=== PATIENT | female | born 1995 | race Caucasian/White ===

== ENCOUNTER 2020-09-06 20:00 | Emergency (ER) | payer OTHER ==
--- OUTSIDE RECORDS SUMMARY | 2020-09-06 20:03 | XMS REPORT | Continuity of Care Document ---
:1995 Author Organization [facility] t Address [address] [place] [address] Care Team Providers Name Role Phone Colten Ordaz Attending Clinician Unavailable Colten Ordaz Admitting Clinician Unavailable Problems This patient has no known problems. Allergies, Adverse Reactions, Alerts This patient has no known allergies or adverse reactions. Medications This patient has no known medications. Procedures This patient has no known procedures. Encounters Start End Encounter Admission Attending Care Care Encounter Source Date/Time Date/Time Type Type Clinicians Facility Department ID 2019-11-10 2019-11-10 Emergency 1 [facility] [id number] [address] 02:39:00 10:54:00 [facility] Results Test Description Test Time Test Comments Results Result Comments Source Urine Culture 2019-11-11 C Urine Added by No growth at 24 08:10:34 [id number] hours. No growth at 48 hours. Novel Coronavirus SARS-CoV-2, PCR 2019-11-10 07:26:49 Test Item Value Reference Range Interpretation Comme nts SARS-CoV-2 PCR (test code = NEGATIVE Negative Positive results are indicative of SARS-CoV-2 PCR) active infec tion with SARS-CoV-2; clinical correl ation with patient history and oth er diagnostic information is necessary to determine patie nt infection status.Presumpt belinda positive results -INTERPRET WITH CAUTION: Result may not reflect if patient is actually positi ve. Patient should be treated based o n clinical suspicions. Neg ative results do not preclude SARS-C oV-2 infection and should not be u sed as the sole basis for treatment o r other patient management deci sions. Negative results must be combined with clinical observ ations, patient history, and ep idemiological information.The Xpert Xpress SARS-CoV-2 test is only for use under the Food and Drug Administration s Emergency Use Authorization." Urinalysis [id number] 05:37:57 Test Item Value Reference Range Interpretation Comments UA WBC (test code = UA WBC) 6-10 0-5 A UA RBC (test code = UA RBC) 6-10 0-5 A UA Bacteria (test code = UA None Seen Bacteria) UA Squam Epithelial (test code = UA 0-5 Squam Epithelial) Comprehensive Metabolic [id number] 04:54:58 Test Item Value Reference Range Interpretation Comments Sodium Level (test code = Sodium 142.0 mmol/L 136.0-145.0 Level) Potassium Level (test code = 3.20 mmol/L 3.50-5.10 L Potassium Level) Chloride Level (test code = 104.0 mmol/L 98.0-107.0 Chloride Level) CO2 (test code = CO2) 30 mmol/L 20-31 Anion Gap (test code = Anion 8.5 mmol/L 5.0-15.0 Gap) BUN (test code = BUN) 11 mg/dL 9-23 Creatinine Level (test code = 0.81 mg/dL 0.55-1.02 Creatinine Level) BUN/Creat Ratio (test code = 13.6 ratio 10.0-20.0 BUN/Creat Ratio) Glucose Level (test code = 105 mg/dL 74-106 Glucose Level) Calcium Level (test code = 9.0 mg/dL 8.3-10.6 Calcium Level) Alk Phos (test code = Alk Phos) 66 U/L 46-116 Bilirubin Total (test code = 0.3 mg/dL 0.2-1.1 Bilirubin Total) Albumin Level (test code = 4.9 g/dL 3.2-4.8 H Albumin Level) Protein Total (test code = 7.5 g/dL 5.7-8.2 Protein Total) ALT (test code = ALT) 29 U/L 10-49 AST (test code = AST) 44 U/L <=34 H Globulin (test code = Globulin) 2.6 g/dL 2.3-3.5 A/G Ratio (test code = A/G 1.9 g/dL 0.8-2.0 Ratio) Hemolysis (test code = 0 g/dL 1-2 Hemolysis) Icterus (test code = Icterus) 0 g/dL 1-2 Lipemia (test code = Lipemia) 0 g/dL 1-2 Comprehensive Metabolic [id number] 04:54:58 Test Item Value Reference Range Interpretation Comments Sodium Level (test 142.0 mmol/L 136.0-145.0 code = Sodium Level) Potassium Level 3.20 mmol/L 3.50-5.10 L (test code = Potassium Level) Chloride Level (test 104.0 mmol/L 98.0-107.0 code = Chloride Level) CO2 (test code = 30 mmol/L 20-31 CO2) Anion Gap (test code 8.5 mmol/L 5.0-15.0 = Anion Gap) BUN (test code = 11 mg/dL 9-23 BUN) Creatinine Level 0.81 mg/dL 0.55-1.02 (test code = Creatinine Level) BUN/Creat Ratio 13.6 ratio 10.0-20.0 (test code = BUN/Creat Ratio) Glucose Level (test 105 mg/dL 74-106 code = Glucose Level) Calcium Level (test 9.0 mg/dL 8.3-10.6 code = Calcium Level) Alk Phos (test code 66 U/L 46-116 = Alk Phos) Bilirubin Total 0.3 mg/dL 0.2-1.1 (test code = Bilirubin Total) Albumin Level (test 4.9 g/dL 3.2-4.8 H code = Albumin Level) Protein Total (test 7.5 g/dL 5.7-8.2 code = Protein Total) ALT (test code = 29 U/L 10-49 ALT) AST (test code = 44 U/L <=34 H AST) Globulin (test code 2.6 g/dL 2.3-3.5 = Globulin) A/G Ratio (test code 1.9 g/dL 0.8-2.0 = A/G Ratio) eGFR AA (test code = >60 >=60 eGFR (e stimated eGFR AA) mL/min/1.73 m2 Glomerular Filtration Rate ) is an estimated va lue, calculated from the patient's serum creatinine usin g the MDRD equation. It is NOT the patient 's actual GFR. The eGFR provides a more clinically usef ul measure of kidn ey disease than se rum creatinine alone.This calculation mae es sex and race in to account, if the information is provided. If th e race is not provided, and t he patient is -Julia n, multiply by 1.2 12. If sex is not provided, and t he patient is fema le, multiply by 0.7 42. Results for pat ients <18 years of ag e have not been validated by th e MDRD study and should be interpreted wit h caution. eGFR R esult Interpretation: eGFR > or = 60 is in the Normal RangeeGF R < 60 may mean kid karolyn diseaseeGFR < 1 5 may mean kidney failure Rang es recommended by the National Kidney Foundation, http://nkdep.ni h.gov Hemolysis (test code 0 g/dL 1-2 = Hemolysis) Icterus (test code = 0 g/dL 1-2 Icterus) Lipemia (test code = 0 g/dL 1-2 Lipemia) Alcohol [id number] 04:54:58 Test Item Value Reference Range Interpretation Comments Ethanol Level 163.2 mg/dL N The pharmacolo gical (test code = response to blo od alcohol Ethanol Level) levels may va ry from individual to i ndividual. The fatal lena ntration has been report ed to be >400 mg/dl. Comprehensive Metabolic [id number] 04:54:58 Test Item Value Reference Range Interpretation Comments Sodium Level (test 142.0 mmol/L 136.0-145.0 code = Sodium Level) Potassium Level 3.20 mmol/L 3.50-5.10 L (test code = Potassium Level) Chloride Level (test 104.0 mmol/L 98.0-107.0 code = Chloride Level) CO2 (test code = 30 mmol/L 20-31 CO2) Anion Gap (test code 8.5 mmol/L 5.0-15.0 = Anion Gap) BUN (test code = 11 mg/dL 9-23 BUN) Creatinine Level 0.81 mg/dL 0.55-1.02 (test code = Creatinine Level) BUN/Creat Ratio 13.6 ratio 10.0-20.0 (test code = BUN/Creat Ratio) Glucose Level (test 105 mg/dL 74-106 code = Glucose Level) Calcium Level (test 9.0 mg/dL 8.3-10.6 code = Calcium Level) Alk Phos (test code 66 U/L 46-116 = Alk Phos) Bilirubin Total 0.3 mg/dL 0.2-1.1 (test code = Bilirubin Total) Albumin Level (test 4.9 g/dL 3.2-4.8 H code = Albumin Level) Protein Total (test 7.5 g/dL 5.7-8.2 code = Protein Total) ALT (test code = 29 U/L 10-49 ALT) AST (test code = 44 U/L <=34 H AST) Globulin (test code 2.6 g/dL 2.3-3.5 = Globulin) A/G Ratio (test code 1.9 g/dL 0.8-2.0 = A/G Ratio) eGFR AA (test code = >60 >=60 eGFR (e stimated eGFR AA) mL/min/1.73 m2 Glomerular Filtration Rate ) is an estimated va lue, calculated from the patient's serum creatinine usin g the MDRD equation. It is NOT the patient 's actual GFR. The eGFR provides a more clinically usef ul measure of kidn ey disease than se rum creatinine alone.This calculation mae es sex and race in to account, if the information is provided. If th e race is not provided, and t he patient is -Julia n, multiply by 1.2 12. If sex is not provided, and t he patient is fema le, multiply by 0.7 42. Results for pat ients <18 years of ag e have not been validated by th e MDRD study and should be interpreted wit h caution. eGFR R esult Interpretation: eGFR > or = 60 is in the Normal RangeeGF R < 60 may mean kid karolyn diseaseeGFR < 1 5 may mean kidney failure Rang es recommended by the National Kidney Foundation, http://nkdep.ni h.gov eGFR Non-AA (test >60.00 >=60.00 eGFR (ck mated code = eGFR Non-AA) mL/min/1.73 m2 Glomer ular Filtration Rate ) is an estimated va lue, calculated from the patient's serum creatinine usin g the MDRD equation. It is NOT the patient 's actual GFR. The eGFR provides a more clinically usef ul measure of kidn ey disease than se rum creatinine alone.This calculation mae es sex and race in to account, if the information is provided. If th e race is not provided, and t he patient is -Julia n, multiply by 1.2 12. If sex is not provided, and t he patient is fema le, multiply by 0.7 42. Results for pat ients <18 years of ag e have not been validated by th e MDRD study and should be interpreted wit h caution. eGFR R esult Interpretation: eGFR > or = 60 is in the Normal RangeeGF R < 60 may mean kid karolyn diseaseeGFR < 1 5 may mean kidney failure Rang es recommended by the National Kidney Foundation, http://nkdep.ni h.gov Hemolysis (test code 0 g/dL 1-2 = Hemolysis) Icterus (test code = 0 g/dL 1-2 Icterus) Lipemia (test code = 0 g/dL 1-2 Lipemia) Urinalysis with Culture, if [id number] 04:54:54 Test Item Value Reference Range Interpretation Comments UA Color (test code = UA Color) YELLO Yellow UA Appear (test code = UA Appear) CLEAR Clear UA pH (test code = UA pH) 7.0 UA Spec Grav (test code = UA Spec 1.010 1.001-1.035 Grav) UA Glucose (test code = UA Glucose) NEG Negative UA Bili (test code = UA Bili) NEG Negative UA Ketones (test code = UA Ketones) NEG Negative UA Blood (test code = UA Blood) MOD Negative A UA Protein (test code = UA Protein) NEG Negative UA Urobilinogen (test code = UA .2 mg/dL >0.2 Urobilinogen) UA Nitrite (test code = UA Nitrite) NEG Negative UA Leuk Est (test code = UA Leuk LRG Negative A Est) UA Micro Ind? (test code = UA Micro Indicated Not Indicated A Ind?) Urine [id number] [id number] 04:48:36 Test Item Value Reference Range Interpretation Comments Amphetamine Screen Ur Negative Negative The sp ecimen is (test code = presumptive pos itive Amphetamine Screen Ur) if th e analyte concentration i s equal to or greater t alberto 1000 ng/ml.If confirmation of positive result is desired, please order Amphetamine Confirmation, U rine within 7 days. Barbiturate Screen Ur Negative Negative The sp ecimen is (test code = presumptive pos itive Barbiturate Screen Ur) if th e analyte concentration i s equal to or greater t alberto 200 ng/ml.If confir mation of positive res ult is desired, please order Barbiturate Confirmation, U rine within 7 days. Benzodiazepines Ur Negative Negative The speci men is (test code = presumptive pos itive Benzodiazepines Ur) if the a nalyte concentration i s equal to or greater t alberto 200 ng/ml.If confir mation of positive res ult is desired, please order Benzodiazephine Confirmation, U rine within 7 days. Cocaine Screen Ur (test Negative Negative The specimen is code = Cocaine Screen presum ptive positive Ur) if the analyte concentration i s equal to or greater t alberto 300 ng/ml.If confir mation of positive res ult is desired, please order Cocaine Metabol ite Confirmation, U rine within 7 days. Opiate Screen Ur (test Negative Negative The s pecimen is code = Opiate Screen presump tive positive Ur) if the analyte concentration i s equal to or greater t alberto 2000 ng/ml.If confirmation of positive result is desired, please order Opiate Confirm ation, Urine within 7 days. U PCP Scrn (test code = Negative Negative The specimen is U PCP Scrn) presumptive pos itive if the analyte concentration i s equal to or greater t alberto 25 ng/ml.If confir mation of positive res ult is desired, please order Phencyclidine Confirmation, U rine within 7 days. Cannabinoid Screen Ur Negative Negative The sp ecimen is (test code = presumptive pos itive Cannabinoid Screen Ur) if th e analyte concentration i s equal to or greater t alberto 50 ng/ml.If confir mation of positive res ult is desired, please order Cannabinoid (TH C) Confirmation, U rine within 7 days. U Methadone Scr (test Negative Negative The sp ecimen is code = U Methadone Scr) pres umptive positive if the analyte concentration i s equal to or greater t alberto 300 ng/ml.If confir mation of positive res ult is desired, please order Methadone Confirmation, U rine within 7 days. U Propoxyphene (test Negative Negative The [facility] cimen is code = U Propoxyphene) presu mptive positive if the analyte concentration i s equal to or greater t alberto 300 ng/ml.If confir mation of positive res ult is desired, please order Propoxyphene Confirmation wi thin 7 days. Complete Blood Count with [id number] 04:41:34 Test Item Value Reference Range Interpretation Comments WBC (test code = WBC) 5.7 x10 4.4-10.5 RBC (test code = RBC) 4.87 x10 3.75-5.20 Hgb (test code = Hgb) 13.9 g/dL 12.2-14.8 Hct (test code = Hct) 43.2 % 36.5-44.4 MCV (test code = MCV) 88.70 fL 80.00-100.00 MCHC (test code = 32.20 g/dL 32.00-37.50 MCHC) RDW CV (test code = 13.3 % 11.5-14.5 RDW CV) MCH (test code = MCH) 28.5 pg 27.0-32.5 Platelets (test code = 351.0 x10 140.0-440.0 Platelets) MPV (test code = MPV) 10.1 fL N Slide Review (test Auto Auto Result cr eated by code = Slide Review) GL_SJM_ SLIDE_REV_AUTO nRBC (test code = 0 N nRBC) NRBC Abs (test code = 0.00 x10 N NRBC Abs) Automated [id number] 04:41:34 Test Item Value Reference Range Interpretation Comments Neutro Auto (test code = Neutro 63.6 % 36.0-70.0 Auto) Lymph Auto (test code = Lymph Auto) 25.0 % 12.0-44.0 Lanier Auto (test code = Lanier Auto) 9.6 % 0.0-11.0 Eos, Auto (test code = Eos, Auto) 0.7 % 0.0-7.0 Basophil Auto (test code = Basophil 0.9 % 0.0-2.0 Auto) Neutro Absolute (test code = Neutro 3.6 x10 1.6-7.4 Absolute) Lymph Absolute (test code = Lymph 1.43 x10 .50-4.60 Absolute) Lanier Absolute (test code = Lanier .55 x10 .00-1.20 Absolute) Eos Absolute (test code = Eos 0.04 x10 0.00-0.74 Absolute) Baso Absolute (test code = Baso 0.05 x10 0.00-0.21 Absolute) IG [id number] 04:41:34 Test Item Value Reference Range Interpretation Comments IG (test code = IG) 0.2 % 0.0-5.0 IG Abs (test code = IG Abs) 0 x10 N
[2020-09-06 21:28] LABS: Absolute Lymphocytes (CBC) 1.4 K/uL (0.7-4.9); Basophils % 0.8 % (0-1.3); Hematocrit 38.1 % (36.0-45.0); Lymphocytes % 25.9 % (15.3-44.8); MPV 9.2 fL (7.6-11.3); RBC Red Blood Cell Count 4.47 M/uL (3.86-4.86)
[2020-09-06 21:37] LABS: Urine Blood 2+ (Negative); Urine Glucose Negative (Negative); Urine Protein Negative (Negative)
[2020-09-06 21:45] LABS: ALT/SGPT 51 U/L (12-78); AST/SGOT 65 U/L (15-37); Albumin 3.7 g/dL (3.4-5.0); Alkaline Phosphatase 72 U/L (45-117); BUN Blood Urea Nitrogen 13 mg/dL (7-18); Bicarbonate 31 mmol/L (21-32); Bilirubin Direct < 0.1 mg/dL (0-0.2); Bilirubin Total 0.2 mg/dL (0.2-1.0); Glucose Level 81 mg/dL (74-106); Lipase 288 U/L (73-393); Potassium 3.7 mmol/L (3.5-5.1); Protein, Total 7.1 g/dL (6.4-8.2); Sodium Level 140 mmol/L (136-145)
[2020-09-06] MEDS ORDERED: MORPHINE 2 MG/ML SYR ONE (21:58)
[2020-09-06] MEDS ORDERED: ONDANSETRON 4 MG/2 ML VIAL ONE (21:59)
--- NOTE | 2020-09-06 23:23 | ER ---
Nurse's Notes [facility] Name: Karol Dowell Age: 25 yrs Sex: Female : 1995 Arrival Date: 09/06/2020 Time: 20:03 Bed 19 Private MD: Diagnosis: Abdominal pain Presentation: 09/06 20:35 Chief complaint: Patient states: Abdominal cramping x 3 weeks. Getting worse. Pain ca1 starts at the epigastric region, goes down to the lower abd'l area, pelvis and lower back. Pain is aggravated by eating. reports nausea. Coronavirus screen: Client denies travel out of the [place] in the last 14 days. nausea, Client presents with at least one sign or symptom that may indicate coronavirus-19. Standard/surgical mask placed on the client. Provider contacted for isolation considerations. Ebola Screen: Patient negative for fever greater than or equal to 101.5 degrees Fahrenheit, and additional compatible Ebola Virus Disease symptoms Patient denies exposure to infectious person. Patient denies travel to an Ebola-affected area in the 21 days before illness onset. No symptoms or risks identified at this time. Initial Sepsis Screen: Does the patient meet any 2 criteria? No. Patient's initial sepsis screen is negative. Does the patient have a suspected source of infection? No. Patient's initial sepsis screen is negative. Risk Assessment: Do you want to hurt yourself or someone else? Patient reports no desire to harm self or others. Onset of symptoms was September 06, 2020. 20:35 Method Of Arrival: Ambulatory ca1 20:35 Acuity: NIR 3 ca1 Triage Assessment: 20:42 General: Appears in no apparent distress. comfortable, Behavior is calm, cooperative, ca1 appropriate for age. Pain: Complains of pain in abdomen Pain radiates to back Pain currently is 5 out of 10 on a pain scale. Quality of pain is described as crampy, Pain began 3 weeks [employer] Is continuous, Aggravated by eating. EENT: No signs and/or symptoms were reported regarding the EENT system. Neuro: Level of Consciousness is awake, alert, obeys commands, Oriented to person, place, time, situation. Cardiovascular: Heart tones S1 S2 present Capillary refill < 3 seconds Patient's skin is warm and dry. Respiratory: Airway is patent Respiratory effort is even, unlabored, Respiratory pattern is regular, symmetrical, Breath sounds are clear bilaterally. GI: Abdomen is flat, non-distended, Bowel sounds present X 4 quads. Abd is soft X 4 quads Abdomen is tender to palpation X 4 quads. Reports diarrhea. : No signs and/or symptoms were reported regarding the genitourinary system. Derm: Skin is intact, is healthy with good turgor, Skin is pink, warm \T\ dry. Musculoskeletal: Circulation, motion, and sensation intact. Capillary refill < 3 seconds. DIRECTOR OF MATERIALS: 20:42 LMP N/A - Irregular menses ca1 Historical: - Allergies: 20:42 lamotrigine; ca1 - Home Meds: 20:42 Paxil Oral [Active]; Trazodone Oral [Active]; ca1 - PMHx: 20:42 Bipolar disorder; Anxiety; ca1 - PSHx: 20:42 None; ca1 - Immunization history:: Client reports having NOT received the Covid vaccine. Flu vaccine is up to date. - Social history:: Smoking status: Patient denies any tobacco usage or history of. Screenin:44 Abuse screen: Denies threats or abuse. Denies injuries from another. Nutritional ca1 screening: No deficits noted. Tuberculosis screening: No symptoms or risk factors identified. Fall Risk IV access (20 points). Assessment: 20:44 Reassessment: see triage notes. ca1 21:58 Reassessment: Patient appears in no apparent distress at this time. Patient and/or ca1 family updated on plan of care and expected duration. Pain level reassessed. Patient is alert, oriented x 3, equal unlabored respirations, skin warm/dry/pink. 22:56 Reassessment: Patient appears in no apparent distress at this time. Patient and/or ca1 family updated on plan of care and expected duration. Pain level reassessed. Patient is alert, oriented x 3, equal unlabored respirations, skin warm/dry/pink. 23:33 Reassessment: Patient appears in no apparent distress at this time. Patient is alert, ca1 oriented x 3, equal unlabored respirations, skin warm/dry/pink. Patient states feeling better. Vital Signs: 20:35 BP 107 / 70; Pulse 64; Resp 18 S; Temp 98.7(O); Pulse Ox 100% on R/A; Weight 56.7 kg ca1 (R); Height 5 ft. 3 in. (160.02 cm) (R); Pain 5/10; 21:58 BP 99 / 56; Pulse 58; Resp 18 S; Pulse Ox 96% on R/A; ca1 22:56 BP 100 / 71; Pulse 57; Resp 18 S; Pulse Ox 100% on R/A; ca1 20:35 Body Mass Index 22.14 (56.70 kg, 160.02 cm) ca1 ED Course: 20:03 Patient arrived in ED. ds1 20:40 Jaquelin Bowles, RN is Primary Nurse. ca1 20:42 Triage completed. ca1 20:42 Arm band placed on right wrist. ca1 20:44 Patient has correct armband on for positive identification. Bed in low position. Call ca1 light in reach. Side rails up X 1. Pulse ox on. NIBP on. Warm blanket given. 21:08 Yosef Winters MD is Attending Physician. [email or web address] 21:19 Initial lab(s) drawn, by nj, sent to lab. Inserted saline lock: 20 gauge in right ca1 antecubital area, using aseptic technique. Blood collected. 22:42 CT Abd/Pelvis - IV Contrast Only In Process Unspecified. EDMS 23:33 No provider procedures requiring assistance completed. IV discontinued, intact, ca1 bleeding controlled, No redness/swelling at site. Pressure dressing applied. Administered Medications: 21:30 Drug: Zofran (Ondansetron) 4 mg Route: IVP; Site: right antecubital; ca1 23:33 Follow up: Response: No adverse reaction; Nausea is decreased ca1 21:35 Drug: morphine 2 mg {Note: rass 0.} Route: IVP; Site: right antecubital; ca1 23:32 Follow up: Response: No adverse reaction; Pain is decreased; RASS: Alert and Calm (0) ca1 Outcome: 23:22 Discharge ordered by . [email or web address] 23:33 Discharged to home ambulatory, with significant other. ca1 23:33 Condition: stable 23:33 Discharge instructions given to patient, Instructed on discharge instructions, follow up and referral plans. Demonstrated understanding of instructions, follow-up care. 23:33 Patient left the ED. ca1 Signatures: Dispatcher [employer] EDMS Yosef Winters MD MD pkl Hailey Howard ds1 Jaquelin Bowles RN RN ca1
--- NOTE | 2020-09-06 23:23 | EDPHYS ---
Physician Documentation [facility] Name: Karol Dowell Age: 25 yrs Sex: Female : 1995 Arrival Date: 09/06/2020 Time: 20:03 Bed 19 Private MD: ED Physician Yosef Winters HPI: 09/06 21:14 This 25 yrs old Female presents to ER via Ambulatory with complaints of pkl Abdominal Pain, Abdominal Cramping. 21:14 The patient presents with abdominal pain that is diffuse. Onset: The symptoms/episode pkl began/occurred 3 week(s) ago. The symptoms do not radiate. Associated signs and symptoms: none. The patient has not experienced similar symptoms in the past. 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 Flu vaccine is up to date. - Social history:: Smoking status: Patient denies any tobacco usage or history of. ROS: 21:14 Eyes: Negative for injury, pain, redness, and discharge, ENT: Negative for injury, pkl pain, and discharge, Neck: Negative for injury, pain, and swelling, Cardiovascular: Negative for chest pain, palpitations, and edema, Respiratory: Negative for shortness of breath, cough, wheezing, and pleuritic chest pain. 21:14 Abdomen/GI: Positive for abdominal pain, nausea, of the epigastric area, right lower quadrant and left lower quadrant. 21:14 Back: Negative for acute changes. 21:14 : Negative for urinary symptoms. 21:14 MS/extremity: Negative for acute changes. 21:14 Skin: Negative for rash. 21:14 Neuro: Negative for altered mental status, loss of consciousness. Exam: 21:14 Head/Face: Normocephalic, atraumatic. Eyes: Pupils equal round and reactive to light, pkl extra-ocular motions intact. Lids and lashes normal. Conjunctiva and sclera are non-icteric and not injected. Cornea within normal limits. Periorbital areas with no swelling, redness, or edema. ENT: Nares patent. No nasal discharge, no septal abnormalities noted. Tympanic membranes are normal and external auditory canals are clear. Oropharynx with no redness, swelling, or masses, exudates, or evidence of obstruction, uvula midline. Mucous membranes moist. Neck: Trachea midline, no thyromegaly or masses palpated, and no cervical lymphadenopathy. Supple, full range of motion without nuchal rigidity, or vertebral point tenderness. No Meningismus. Chest/axilla: Normal chest wall appearance and motion. Nontender with no deformity. No lesions are appreciated. Cardiovascular: Regular rate and rhythm with a normal S1 and S2. No gallops, murmurs, or rubs. Normal PMI, no JVD. No pulse deficits. Respiratory: Lungs have equal breath sounds bilaterally, clear to auscultation and percussion. No rales, rhonchi or wheezes noted. No increased work of breathing, no retractions or nasal flaring. 21:14 Abdomen/GI: Bowel sounds: normal, Palpation: soft, mild abdominal tenderness, in the epigastric area, right lower quadrant and left lower quadrant. 21:14 Back: Exam negative for acute changes. 21:14 : Exam negative for acute changes. 21:14 Musculoskeletal/extremity: Exam is negative for acute changes. 21:14 Skin: Exam negative for rash. 21:14 Neuro: Orientation: is normal, Mentation: is normal, Cranial nerves: grossly normal, Motor: is normal. Vital Signs: 20:35 BP 107 / 70; Pulse 64; Resp 18 S; Temp 98.7(O); Pulse Ox 100% on R/A; Weight 56.7 kg ca1 (R); Height 5 ft. 3 in. (160.02 cm) (R); Pain 5/10; 21:58 BP 99 / 56; Pulse 58; Resp 18 S; Pulse Ox 96% on R/A; ca1 22:56 BP 100 / 71; Pulse 57; Resp 18 S; Pulse Ox 100% on R/A; ca1 20:35 Body Mass Index 22.14 (56.70 kg, 160.02 cm) ca1 MDM: 21:08 Patient medically screened. pkl 23:18 Data reviewed: vital signs, nurses notes, lab test result(s), radiologic studies, CT pkl scan. ED course: Discussed lab and CT Scan results with patient. Advised to follow up with PCP or Sole Splitter in 2 to 3 days for further evaluations. Patient understood instructions. 09/06 21:07 Order name: Basic Metabolic Panel em 09/06 21:07 Order name: CBC with Diff; Complete Time: 21:50 em 09/06 21:07 Order name: Hepatic Function; Complete Time: 21:50 em 09/06 21:07 Order name: Lipase; Complete Time: 21:50 em 09/06 21:08 Order name: Basic Metabolic Panel; Complete Time: 21:50 EDMS 09/06 21:36 Order name: Urine --Ancillary (enter results); Complete Time: 21:50 tt3 09/06 21:07 Order name: IV Saline Lock; Complete Time: 21:24 em 09/06 21:07 Order name: Labs collected and sent; Complete Time: 21:24 em 09/06 21:07 Order name: Urine Dipstick-Ancillary (obtain specimen); Complete Time: 21:34 em 09/06 21:18 Order name: CT Abd/Pelvis - IV Contrast Only pkl 09/06 21:36 Order name: Urine Dipstick-Ancillary; Complete Time: 21:50 EDMS Administered Medications: 21:30 Drug: Zofran (Ondansetron) 4 mg Route: IVP; Site: right antecubital; ca1 23:33 Follow up: Response: No adverse reaction; Nausea is decreased ca1 21:35 Drug: morphine 2 mg {Note: rass 0.} Route: IVP; Site: right antecubital; ca1 23:32 Follow up: Response: No adverse reaction; Pain is decreased; RASS: Alert and Calm (0) ca1 Disposition Summary: 09/06/20 23:22 Discharge Ordered Location: Home pkl Problem: new pkl Symptoms: have improved pkl Condition: Stable pkl Diagnosis - Abdominal pain pkl Followup: pkl - With: Private Physician - When: 2 - 3 days - Reason: Re-evaluation by your physician Discharge Instructions: - Discharge Summary Sheet ca1 Forms: - Medication Reconciliation Form pkl - Thank You Letter pkl - Antibiotic Education pkl - Prescription Opioid Use pkl - Work release form ca1 Signatures: Dispatcher [employer] EDYosef Terry MD MD pkl Noe, [place], RN RN em Acob, Jaquelin, RN RN ca1
[2020-09-07 00:31] VITALS: TEMP 98.7
[2020-09-07 00:34] VITALS: BP 100/71; O2SAT 100
--- NOTE | 2020-09-07 11:16 | RAD REPORT ---
EXAM DESCRIPTION: CT - Abdomen Pelvis W Contrast - 09/07/2020 4:52 am CLINICAL HISTORY: The patient is 28 years old and is Female; pain left upper extremity TECHNIQUE: Axial computed tomography images of the cervical spine without intravenous contrast. Sa gittal and coronal reformatted images were created and reviewed. This CT exam was performed using o ne or more of the following dose reduction techniques: automated exposure control, adjustment of th e mA and/or kV according to patient size, and/or use of iterative reconstruction technique. COMPARISON: No relevant prior studies available. FINDINGS: Vertebrae: Unremarkable. No acute fracture. Discs/spinal canal/neural foramina: No acute findings. No spinal canal stenosis. Soft tissues: Unremarkable. Sinuses: Right maxillary sinus retention cyst or polyp. IMPRESSION: No acute fracture or subluxation. Electronically signed by: Milo Santoyo MD 09/07/2020 2:32 AM CDT Due to temporary technical issues with the PACS/Fluency reporting system, reports are being signed by the in house radiologist without review as a courtesy to ensure prompt reporting. The interpreting r adiologist is fully responsible for the content of the report.
== END 2020-09-06 23:33 | disposition home or self-care (01) ==
LOC: ER 20:00
DX: R10.9 Unspecified abdominal pain (principal); F31.9 Bipolar disorder, unspecified; Z88.8 Allergy status to other drugs, medicaments and biological substances
CPT/HCPCS: 85025; 80048; 36415; 81025; 80076; 81003; 83690; 74177; 96375; 96374; 99284; Q9967; J2270; J2405

== ENCOUNTER 2021-12-09 20:59 | Emergency (ER) | payer BC, OTHER ==
--- OUTSIDE RECORDS SUMMARY | 2021-12-09 21:36 | XMS REPORT | Continuity of Care Document ---
:1995 Author Organization [facility] t Address [address] [place] [address] Care Team Providers Name Role Phone PCP, PATIENT DOES NOT HAVE A Primary Care Physician Unavaila CARLOS Silva Attending Clinician Unavailable Chivo Merino MD Attending Clinician Carlos Granados MD Attending Clinician Ann Ordaz Attending Clinician Unavailable CHIVO MERINO Admitting Clinician Unavailable Ann Ordaz Admitting Clinician Unavailable Payers Payer Name Policy Type Policy Number Effective Date Expiration Date S aidee [facility] [id number] 2021 00:00:00 Problems This patient has no known problems. Allergies, Adverse Reactions, Alerts Allergy Allergy Status Severity Reaction(s) Onset Inactive Treating Comm ents Source Name Type Date Date Clinician LAMOTRIG DRUG Active Anaphylaxis 2021-0 Uni vers INE 6-26 ity of (BULK) 00:00: [place] 00 Medical Branch Lamotrig Propensi Active Anaphylaxis 2021-0 U nivers ine ty to 6-26 ity of (Bulk) adverse 00:00: [place] reaction 00 Medical s Branch No Known Drug Active [facility] Social History Social Habit Start Date Stop Date Quantity Comments Source Exposure to 2021-08-05 2021-08-15 Not sure [facility] SARS-CoV-2 (event) 00:00:00 01:48:00 Medica l Branch Sex Assigned At [birth year] [facility] 00:00:00 00:00:00 Medical Branch Smoking Status Start Date Stop Date Source Unknown if ever smoked [facility] Medications Ordered Filled Start Stop Current Ordering Indication Dosage Frequency Signature Comments Components Source Medication Medication Date Date Medication? Clinician (SIG) Name Name iopamidol 2021- No [id number] 55mL 55 mL, U nivers (ISOVUE 08-15 Intravenou ity o f 370-500 mL) 11:08: 11:30 s, ONCE, 1 [place] injection 00 :00 dose, On Medica l 55 mL [facility] 08/15/21 at 0630, Routine ketorolac 2021- No 15mg 15 mg, Unive rs (TORADOL) 08-15 Slow IV ity of injection 10:30: 09:41 Push, [place] 15 mg 00 :00 ONCE, 1 Medical dose, On [facility] 08/15/21 at 0530, MARY famotidine 2021- No 20mg 20 mg, Univ ers (PEPCID 08-15 Slow IV ity of (PF)) 10:30: 09:41 Push, [place] injection 00 :00 ONCE, 1 Medical 20 mg dose, On [facility] 08/15/21 at 0530, MARY ondansetron 2021- No 4mg 4 mg, Slow Univers (ZOFRAN 08-15 IV Push, ity of (PF)) 10:30: 09:41 ONCE, 1 [place] injection 4 00 :00 dose, On Medi aury mg [facility] 08/15/21 at 0530, MARY NaCl 0.9% 2021- No 1000mL at 999 Uni vers (NS) bolus 08-15 mL/hr, ity of infusion 10:30: 12:03 1,000 mL, Phill as 1,000 mL 00 :00 IV Medical Infusion, Branch ONCE, 1 dose, On [place] 08/15/21 at 0530, MARY sodium Yes 5mL 5 mL, Univers chloride 08-15 Intravenou ity o f (NS) 07:04: s, PRN, [place] injection 5 16 Starting Medi aury mL on [facility] 08/15/21 at 0204, Until Discontinu ed, Routine, IV line flushing acetaminoph Yes 4647 2{tbl} Take 2 Un yennifer en-codeine 6-26 tablets by ity of 300-30 mg 00:00: mouth [place] tablet 00 every 6 Medical (six) Branch hours as needed for Pain (scale 7-10). Indication s: acute pain ondansetron Yes [id number] 4mg Take 1 Univers 4 mg 6-26 tablet by ity of disintegrat 00:00: mouth [place] ing tablet 00 every 8 Medica l (eight) Branch hours as needed for Nausea and Vomiting (N/V). Vital Signs Vital Name Observation Time Observation Value Comments Source Systolic blood 2021-08-15 12:00:00 99 mm[Hg] [facility] Diastolic blood 2021-08-15 12:00:00 65 mm[Hg] [facility] Respiratory rate 2021-08-15 12:00:00 16 /min [facility] Heart rate 2021-08-15 09:06:00 63 /min [facility] Body temperature 2021-08-15 09:06:00 36.61 Katie [facility] Oxygen saturation in 2021-08-15 09:06:00 99 /min [facility] Arterial blood by [facility] Pulse oximetry [place] Body weight 2021-08-15 06:46:00 52.617 kg [facility] Procedures Procedure Date / Time Performing Clinician Source Performed CT ABDOMEN PELVIS W 2021-08-15 11:15:00 Chivo Merino [facility] CONTRAST [facility] Er POCT TEST 2021-08-15 09:38:00 Chivo Merino [facility] URINALYSIS 2021-08-15 08:15:00 Chivo Merino [place] [facility] URINE DRUG (IMMUNOASSAY) 2021-08-15 08:15:00 Chivo Merino [facility] SCREEN W/O REFLEX LIPASE 2021-08-15 07:44:00 Chivo Merino [place] f [facility] TEST, SERUM 2021-08-15 07:44:00 Chivo Merino [facility] COMP. METABOLIC PANEL 2021-08-15 07:44:00 Chivo Merino [facility] ([id number]) Medical Branch ETHANOL 2021-08-15 07:44:00 Chivo Merino [facility] CBC WITH DIFF 2021-08-15 07:44:00 Chivo Merino [facility] CONSENT/REFUSAL FOR 2021-08-15 06:46:26 Doctor Unassigned, No Un [facility] DIAGNOSIS AND TREATMENT Name Medical Branch Encounters Start End Encounter Admission Attending Care Care Encounter Source Date/Time Date/Time Type Type Clinicians Facility Department ID 2021-08-15 2021-08-15 Emergency X GALINDO, [facility] ERT [id number] Univers 01:55:00 07:38:00 CARLOS sanderson [facility] 2021-08-15 2021-08-15 Emergency Chivo Merino TRAU[place] [id number] Univers 01:55:00 07:38:00 Carlos Granados [facility] [id number] ity of [id number] [facility] [id number] [address] 2019-11-10 2019-11-10 [id number] [address] 02:39:00 10:54:00 [facility] Results Test Description Test Time Test Comments Results Result Comments Source TEST, SERUM 2021-08-15 09:51:51 Test Item Value Reference Range Interpretation Comme nts PREG SERUM (test code = 9834131792) Negative EMILY (test code = EMILY) Less than 10 IU/L. ?If low titer or ectopic is suspected, resubmit specimen in 48-72 hours. [facility] [id number] 09:38:00 Test Item Value Reference Range Interpretation Comments POCT PREG (test code = 1605) negative On board controls acceptable with Present C Line (test code = 3574) POCT PREG LOT # (test code = 3575) [id number] POCT PREG TEST DATE (test 03-22-2022 code = 3576) Lab Interpretation (test code = Normal 41131-3) [facility] 09:36:22 Test Item Value Reference Range Interpretation Comments ALCOHOL (test code = <10 mg/dL 2150326235) EMILY (test code = Toxic Greater than or EMILY) equal to 80 mg/dL. NOTE: Whole blood values are approximately 10% to 15% lower than serum and plasma. [facility] with [id number] 08:27:31 Test Item Value Reference Range Interpretation Comments WBC (test code = See_Comment L [Automated 6690-2) message] The sy stem which generated this result transmitted reference range : 4.30 - 11.10 10*3/?L. The reference range was not used to interpret this result as normal/abnormal . RBC (test code = See_Comment [Automated 789-8) message] The sy stem which generated this result transmitted reference range : 3.93 - 5.25 10*6/?L. The reference range was not used to interpret this result as normal/abnormal . HGB (test code = 12.2 g/dL 11.6-15.0 718-7) HCT (test code = 35.9 % 35.7-45.2 4544-3) MCV (test code = 87.3 fL 80.6-95.5 787-2) MCH (test code = 29.7 pg 25.9-32.8 785-6) MCHC (test code = 34.0 g/dL 31.6-35.1 786-4) RDW-SD (test code = 38.8 fL 39.0-49.9 L 31108-9) RDW-CV (test code = 12.1 % 12.0-15.5 788-0) PLT (test code = See_Comment [Automated 777-3) message] The sy stem which generated this result transmitted reference range : 166 - 358 10*3/ ?L. The reference r harpal was not used to interpret this result as normal/abnormal . MPV (test code = 10.6 fL 9.5-12.9 71402-2) NRBC/100 WBC (test See_Comment [Automat ed code = 4748687446) message] The system which generated this result transmitted reference range : 0.0 - 10.0 /100 WBCs. The refer ence range was not u sed to interpret th is result as normal/abnormal . NRBC x10^3 (test code <0.01 See_Comment [Auto mated = 5058909447) message] The s ystem which generated this result transmitted reference range : 10*3/?L. The reference range was not used to interpret this result as normal/abnormal . GRAN MAT (NEUT) % 46.9 % (test code = 770-8) IMM GRAN % (test code 0.20 % = 3590960710) LYMPH % (test code = 35.9 % 736-9) MONO % (test code = 14.7 % 5905-5) EOS % (test code = 1.4 % 713-8) BASO % (test code = 0.9 % 706-2) GRAN MAT x10^3(ANC) 1.98 10*3/uL 1.88-7.09 (test code = 8154073369) IMM GRAN x10^3 (test <0.03 0.00-0.06 code = 0685502731) LYMPH x10^3 (test code 1.52 10*3/uL 1.32-3.29 = 731-0) MONO x10^3 (test code 0.62 10*3/uL 0.33-0.92 = 742-7) EOS x10^3 (test code = 0.06 10*3/uL 0.03-0.39 711-2) BASO x10^3 (test code 0.04 10*3/uL 0.01-0.07 = 704-7) REACT LYMPHS (test Rare code = 2393738553) Lab Interpretation Abnormal (test code = 38550-3) [facility] [id number] 08:07:03 Test Item Value Reference Range Interpretation Comments NA (test code = 138 mmol/L 135-145 9769608332) K (test code = 4.2 mmol/L 3.5-5.0 1250001949) CL (test code = 106 mmol/L 98-108 1332439933) CO2 TOTAL (test code = 29 mmol/L 23-31 9072310355) AGAP (test code = 2-16 1597965863) BUN (test code = 11 mg/dL 7-23 8465275479) GLUCOSE (test code = 89 mg/dL 70-110 6179051541) CREATININE (test code = 0.58 mg/dL 0.50-1.04 3162426946) TOTAL BILI (test code = 0.3 mg/dL 0.1-1.8 9141377806) CALCIUM (test code = 9.1 mg/dL 8.6-10.6 7700620339) T PROTEIN (test code = 7.0 g/dL 6.3-8.2 1874972817) ALBUMIN (test code = 4.3 g/dL 3.5-5.0 5630434053) ALK PHOS (test code = 63 U/L 34-122 9499497891) ALTv (test code = 62 U/L 5-35 H 1742-6) AST(SGOT) (test code = 46 U/L 13-40 H 0478931211) eGFR (test code = mL/min/1.73m2 5285758973) EMILY (test code = EMILY) Association of Glomerular Filtration Rate (GFR) and Staging of Kidney Disease* + --+ --+ ------+| GFR (mL/min/1.73 m2) ?| With Kidney Damage ?| ?Without Kidney Damage+ --------+ --------+ +| ?>90 ?| ?Stage one ?| ? Normal ?+ ---+ ---+ -------+| ?60-89 ?| ?Stage two ?| ? Decreased GFR ? + --+ --+ ------+| ?30-59 ?| ?Stage three ?| ? Stage three ? + --+ --+ ------+| ?15-29 ?| ?Stage four ? | ? Stage four ?+ ---+ ---+ -------+| ?<15 (or dialysis) ? ?| ?Stage five ? | ? Stage five ?+ ---+ ---+ -------+ *Each stage assumes the associated GFR level has been in effect for at least three months. ?Stages 1 to 5, with or without kidney disease, indicate chronic kidney disease. Notes: Determination of stages one and two (with eGFR >59mL/min/1.73 m2) requires estimation of kidney damage for at least three months as defined by structural or functional abnormalities of the kidney, manifested by either:Pathological abnormalities or Markers of kidney damage (including abnormalities in the composition of the blood or urine or abnormalities in imaging tests). Lab Interpretation Abnormal (test code = 85710-5) [facility] Hospital[facility], [id number] 08:07:03 Test Item Value Reference Range Interpretation Comments LIPASE (test code = 0574205423) 319 U/L 0-220 H Lab Interpretation (test code = Abnormal 94840-7) [facility] Hospital[facility] [id number] 08:10:34 C Urine Added by [id number] growth at 24 hours. No growth at 48 hours.Novel Coronavirus SARS-CoV-2, [id number] 07:26:49 Test Item Value Reference Range Interpretation Comments SARS-CoV-2 PCR NEGATIVE Negative Positive resu lts are (test code = indicative of a ctive SARS-CoV-2 PCR) infection wi th SARS-CoV-2; clinical correl ation with patient history and other diagnostic info rmation is necessary to de termine patient infecti on status.Presumpt belinda positive result s -INTERPRET WITH CAUTION: Result may not reflect if mir ent is actually positi ve. Patient should be treat ed based on clinical suspic ions. Negative result s do not preclude SARS-C oV-2 infection and s hould not be used as the sole basis for treatment o r other patient managem ent decisions. Nega tive results must be combined with clinical observations, p atient history, and epidemiological information.The Xpert Xpress SARS-CoV -2 test is only for use un sherry the Food and Drug Administration s Emergency Use Authorization." Urinalysis [id number] 05:37:57 Test Item Value Reference Range Interpretation Comments UA WBC (test code = UA WBC) 6-10 0-5 A UA RBC (test code = UA RBC) 6-10 0-5 A UA Bacteria (test code = UA None Seen Bacteria) UA Squam Epithelial (test code = UA 0-5 Squam Epithelial) Comprehensive Metabolic [id number] 04:54:58 Test Item Value Reference Range Interpretation [...] = Lipemia) 0 g/dL 1-2 Comprehensive Metabolic [id number] 04:54:58 Test Item Value Reference Range Interpretation [...] code = 0 g/dL 1-2 Lipemia) Alcohol [id number] 04:54:58 Test Item Value Reference Range Interpretation Comments Ethanol Level 163.2 mg/dL N The pharmacolo gical (test code = response to blo od alcohol Ethanol Level) levels may va ry from individual to i ndividual. The fatal lena ntration has been report ed to be >400 mg/dl. Comprehensive Metabolic [id number] 04:54:58 Test Item Value Reference Range Interpretation [...] ag e have not been validated by [facility] MDRD study and should be interpreted wit [...] ag e have not been validated by [facility] MDRD study and should be interpreted wit [...] g/dL 1-2 Lipemia) Urinalysis with Culture, if [id number] 04:54:54 Test Item Value Reference Range Interpretation [...] Indicated Not Indicated A Ind?) Urine DOA [id number] 04:48:36 Test Item Value Reference Range Interpretation [...] positive result is desired, please order Opiate Confirma tion, Urine within 7 days. U PCP Scrn [...] days. U Propoxyphene (test Negative Negative The spe cimen is code = U Propoxyphene) presu mptive positive if the analyte concentration i s equal to or greater t alberto 300 ng/ml.If confir mation of positive res ult is desired, please order Propoxyphene Confirmation wi thin 7 days. Complete Blood Count with [id number] 04:41:34 Test Item Value Reference Range Interpretation [...] = 0.00 x10 N NRBC Abs) Automated [id number] 04:41:34 Test Item Value Reference Range Interpretation Comments Neutro Auto (test code = Neutro 63.6 % 36.0-70.0 Auto) Lymph Auto (test code = Lymph Auto) 25.0 % 12.0-44.0 [place] Auto (test code = [place] Auto) 9.6 % 0.0-11.0 Eos, Auto (test code = Eos, Auto) 0.7 % 0.0-7.0 Basophil Auto (test code = Basophil 0.9 % 0.0-2.0 Auto) Neutro Absolute (test code = Neutro 3.6 x10 1.6-7.4 Absolute) Lymph Absolute (test code = Lymph 1.43 x10 .50-4.60 Absolute) [place] Absolute (test code = [place] .55 x10 .00-1.20 Absolute) Eos Absolute (test code = Eos 0.04 x10 0.00-0.74 Absolute) Baso Absolute (test code = Baso 0.05 x10 0.00-0.21 Absolute) IG [id number] 04:41:34 Test Item Value Reference Range Interpretation Comments IG (test code = IG) 0.2 % 0.0-5.0 IG Abs (test code = IG Abs) 0 x10 N
[2021-12-09] MEDS ORDERED: ONDANSETRON 4 MG/2 ML VIAL ONE (22:00)
[2021-12-09] MEDS ORDERED: MORPHINE 4 MG/ML SYR ONE (22:00)
[2021-12-09] MEDS ORDERED: NA CHLORIDE 0.9% 1,000 ML ONE (22:01)
[2021-12-09] MEDS ORDERED: FAMOTIDINE 20 MG/2 ML VIAL IV ONE (22:02)
[2021-12-09 23:04] LABS: Albumin 3.9 g/dL (3.4-5.0); Bilirubin Total 0.5 mg/dL (0.2-1.0); Potassium 3.2 mmol/L (3.5-5.1); Protein, Total 7.1 g/dL (6.4-8.2)
[2021-12-09 23:09] LABS: Absolute Lymphocytes (CBC) 1.1 K/uL (0.7-4.9); Lymphocytes % 21.3 % (15.3-44.8); MCV 87.6 fL (80-100); MPV 9.6 fL (7.6-11.3); RBC Red Blood Cell Count 4.33 M/uL (3.86-4.86)
[2021-12-09 23:31] LABS: Urine Blood Negative (Negative); Urine Glucose Negative (Negative); Urine Protein Negative (Negative); Urine pH >=9.0 (5.0-7.0)
[2021-12-09 23:55] LABS: Urine Bacteria <20 /HPF (<20); Urine Mucus Slight /HPF (None Seen); Urine RBC <5 /HPF (None Seen)
--- NOTE | 2021-12-10 02:10 | ER ---
Nurse's Notes [facility] Name: Karol Dowell Age: 26 yrs Sex: Female : 1995 Arrival Date: 12/09/2021 Time: 21:31 Bed 8 Private MD: Diagnosis: Acute on chronic abdominal pain;Nausea and vomiting Presentation: 12/09 21:47 Chief complaint: EMS states: patient report severe abdominal pain that has been going ha1 on for one year. blood pressure was low but got better with a bolus of 1000 ML NS. Coronavirus screen: Vaccine status: Patient reports being unvaccinated. Ebola Screen: No symptoms or risks identified at this time. 21:47 Method Of Arrival: EMS: [facility] ha1 21:56 Initial Sepsis Screen: Does the patient meet any 2 criteria? No. Patient's initial ha1 sepsis screen is negative. Does the patient have a suspected source of infection? No. Patient's initial sepsis screen is negative. Risk Assessment: Do you want to hurt yourself or someone else? Patient reports no desire to harm self or others. Onset of symptoms was May 22, 2020. 21:56 Acuity: NIR 3 ha1 Triage Assessment: 21:50 General: Appears uncomfortable, ill, Behavior is cooperative. Pain: Complains of pain ha1 in abdominal Pain does not radiate. Pain currently is 10 out of 10 on a pain scale. Pain began years ago. Alleviated by medications. Neuro: Level of Consciousness is awake, alert, obeys commands, Oriented to person, place, time, situation. Cardiovascular: Patient's skin is warm and dry. Respiratory: Airway is patent Trachea midline Respiratory effort is even, unlabored, Respiratory pattern is regular, symmetrical. GI: Abdomen is flat, Bowel sounds present X 4 quads. Reports lower abdominal pain, upper abdominal pain. : No signs and/or symptoms were reported regarding the genitourinary system. Derm: No signs and/or symptoms reported regarding the dermatologic system. Skin is pink, warm \T\ dry. Musculoskeletal: Circulation, motion, and sensation intact. Range of motion: intact in all extremities. 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 - Social history:: Smoking status: unknown. Screenin:55 Abuse screen: Denies threats or abuse. Denies injuries from another. Nutritional ha1 screening: No deficits noted. Tuberculosis screening: No symptoms or risk factors identified. Fall Risk None identified. Assessment: 21:40 General: see triage. ha1 22:20 Reassessment: Patient and/or family updated on plan of care and expected duration. Pain ha1 level reassessed. Patient is alert, oriented x 3, equal unlabored respirations, skin warm/dry/pink. pain 11/29. 22:41 Reassessment: Patient and/or family updated on plan of care and expected duration. Pain ha1 level reassessed. Patient is alert, oriented x 3, equal unlabored respirations, skin warm/dry/pink. pain 07/30. 23:40 Reassessment: Patient and/or family updated on plan of care and expected duration. Pain ha1 level reassessed. Patient is alert, oriented x 3, equal unlabored respirations, skin warm/dry/pink. 12/10 01:19 Reassessment: Patient and/or family updated on plan of care and expected duration. Pain ha1 level reassessed. Patient is alert, oriented x 3, equal unlabored respirations, skin warm/dry/pink. 02:13 Reassessment: Patient and/or family updated on plan of care and expected duration. Pain ha1 level reassessed. Patient is alert, oriented x 3, equal unlabored respirations, skin warm/dry/pink. Patient states symptoms have improved. 02:25 GI:. ha1 Vital Signs: 12/09 21:47 BP 91 / 56; Pulse 54; Resp 18; Temp 98.8; Pulse Ox 100% on R/A; Weight 49.9 kg; Height ha1 5 ft. 3 in. (160.02 cm); Pain 11/29; 22:20 BP 97 / 65; Pulse 60; Resp 18 S; Pulse Ox 100% on R/A; ha1 22:55 Resp 16 S; Pulse Ox 100% on R/A; ha1 12/10 01:20 BP 99 / 61; Pulse 65; Resp 18 S; Pulse Ox 100% on R/A; ha1 02:13 BP 100 / 63; Pulse 60; Resp 18 S; Pulse Ox 100% on R/A; ha1 12/09 21:47 Body Mass Index 19.49 (49.90 kg, 160.02 cm) ha1 ED Course: 12/09 21:31 Patient arrived in ED. wm 21:31 Jj Felipe PA is PHCP. cp 21:31 Asmita Madrid MD is Attending Physician. cp 21:31 Maintain EMS IV. ha1 21:47 April Grover RN is Primary Nurse. ha1 21:50 Arm band placed on right wrist. ha1 21:57 Triage completed. ha1 21:57 Patient has correct armband on for positive identification. Placed in gown. Bed in low ha1 position. Call light in reach. Side rails up X 1. 12/10 00:20 CT Abd/Pelvis - IV Contrast Only In Process Unspecified. EDMS 02:09 Raphael Ko MD is Referral Physician. sd2 02:24 No provider procedures requiring assistance completed. IV discontinued, intact, ha1 bleeding controlled, No redness/swelling at site. Pressure dressing applied. Administered Medications: 12/09 22:23 Drug: morphine 4 mg Route: IVP; Infused Over: 4 mins; Site: left antecubital; ha1 22:55 Follow up: Resp 16 bpm Spontaneous; Pulse Ox 100% RA; Response: No adverse reaction; ha1 Pain is decreased; RASS: Alert and Calm (0) 22:25 Drug: Zofran (Ondansetron) 4 mg Route: IVP; Site: left antecubital; ha1 22:55 Follow up: Response: No adverse reaction ha1 22:27 Drug: NS 0.9% 1000 ml Route: IV; Rate: 1 bolus; Site: left antecubital; ha1 12/10 02:28 Follow up: Response: No adverse reaction; IV Status: Completed infusion; IV Intake: ha1 1000ml 12/09 22:28 Drug: Pepcid (famotidine) 20 mg Route: IVP; Site: left antecubital; ha1 22:55 Follow up: Response: No adverse reaction ha1 Medication: 12/10 02:25 VIS not applicable for this client. ha1 Intake: 02:28 IV: 1000ml; Total: 1000ml. ha1 Outcome: 02:09 Discharge ordered by . [email or web address] 02:24 Discharged to home via wheelchair, with family. ha1 02:24 Condition: stable 02:24 Discharge instructions given to patient, family, Instructed on discharge instructions, follow up and referral plans. medication usage. 02:25 Patient left the ED. ha1 Signatures: Dispatcher [employer] EDMS Jj Felipe PA PA cp Marsh, Wendy wm Dunlop, Stephanie, MD MD sd2 April Grover RN RN ha1 Corrections: (The following items were deleted from the chart) 02:13 02:13 Reassessment: Patient and/or family updated on plan of care and expected ha1 duration. Pain level reassessed. Patient is alert, oriented x 3, equal unlabored respirations, skin warm/dry/pink. ha1
--- NOTE | 2021-12-10 02:10 | EDPHYS ---
Physician Documentation [facility] Name: Karol Dowell Age: 26 yrs Sex: Female : 1995 Arrival Date: 12/09/2021 Time: 21:31 Bed 8 Private MD: ED Physician Asmita Madrid HPI: 12/09 21:37 This 26 yrs old Female presents to ER via Unassigned with complaints of Abdominal Pain. sd2 21:37 26-year-old female with a history of chronic gastritis and colitis presents via EMS sd2 with chief complaint of abdominal pain that has been ongoing for the past 3 to 4 hours at home. She reports she has had intermittent episodes of abdominal pain for the past year to year and a half. She has had 2 scopes last year that showed the chronic gastritis and has been on different medications. She was recently started on colchicine for her rheumatoid arthritis and has taken her Bentyl at home with no relief. She was found to be hypotensive in the 80s upon EMSs arrival and improved with 300 cc of IV fluids. She denies any fevers, nausea, vomiting or diarrhea.. 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 - Social history:: Smoking status: unknown. ROS: 21:37 Constitutional: Negative for fever, chills, and weight loss, Eyes: Negative for injury, sd2 pain, redness, and discharge, Cardiovascular: Negative for chest pain, palpitations, and edema, Respiratory: Negative for shortness of breath, cough, wheezing. 21:37 : Negative for dysuria, urinary frequency, hesitancy, urgency and hematuria. MS/Extremity: Negative for injury and deformity, Skin: Negative for injury, rash, and discoloration, Neuro: Negative for headache, numbness and tingling. 21:37 Abdomen/GI: Positive for abdominal pain, Negative for nausea, vomiting, and diarrhea. Exam: 21:37 Constitutional: This is a well developed, well nourished patient who is awake, alert, sd2 and appears to be in distress 2/2 pain. Head/Face: Normocephalic, atraumatic. Eyes: EOMI, normal conjunctiva bilaterally Chest/axilla: Normal chest wall appearance and motion. Nontender with no deformity. Cardiovascular: Regular rate and rhythm with a normal S1 and S2. No gallops, murmurs, or rubs. 2+ distal pulses. Respiratory: Lungs have equal breath sounds bilaterally, clear to auscultation and percussion. No rales, rhonchi or wheezes noted. No increased work of breathing, no retractions or nasal flaring. Abdomen/GI: Soft, ND, TTP generalized but more on the L side than the R with voluntary guarding and no rebound Skin: Warm, dry with normal turgor. Normal color with no rashes, no lesions, and no evidence of cellulitis. MS/ Extremity: Pulses equal, no cyanosis. Neurovascular intact. Full, normal range of motion. Ambulatory without difficulty. Psych: Awake, alert, with orientation to person, place and time. Behavior, mood, and affect are within normal limits. Vital Signs: 21:47 BP 91 / 56; Pulse 54; Resp 18; Temp 98.8; Pulse Ox 100% on R/A; Weight 49.9 kg; Height ha1 5 ft. 3 in. (160.02 cm); Pain 11/29; 22:20 BP 97 / 65; Pulse 60; Resp 18 S; Pulse Ox 100% on R/A; ha1 22:55 Resp 16 S; Pulse Ox 100% on R/A; ha1 12/10 01:20 BP 99 / 61; Pulse 65; Resp 18 S; Pulse Ox 100% on R/A; ha1 02:13 BP 100 / 63; Pulse 60; Resp 18 S; Pulse Ox 100% on R/A; ha1 12/09 21:47 Body Mass Index 19.49 (49.90 kg, 160.02 cm) ha1 MDM: 12/09 21:37 Patient medically screened. sd2 21:37 Differential Diagnosis Gastritis, cholecystitis, pancreatitis, SBO, diverticulitis, sd2 kidney stone, appendicitis, UTI, dehydration, electrolyte abnormality among others. Data reviewed: vital signs, nurses notes, EMS record. 12/10 02:06 Data reviewed: lab test result(s), radiologic studies. Counseling: I had a detailed sd2 discussion with the patient and/or guardian regarding: the historical points, exam findings, and any diagnostic results supporting the discharge/admit diagnosis, lab results, radiology results, the need for outpatient follow up, to return to the emergency department if symptoms worsen or persist or if there are any questions or concerns that arise at home. Medical screen evaluation completed. [facility] emergency medical condition absent. ED course: Labs and imaging reviewed. Labs grossly WNCL aside from mild hypokalemia. CTAP with no acute pathology. Pt feeling much improved after treatment in ER. Will continue to follow up with her specialists with ongoing testing into the etiology of her symptoms. Pt not tolerating pain well at home currently with Bentyl alone. She is open to a trial of tramadol at home short-term for pain control until she can see GI again although she would prefer to avoid narcotics. She is comfortable with a plan for discharge and outpatient follow up at this time. Verbalizes understanding of strict return precautions.. 12/09 21:41 Order name: CBC with Diff; Complete Time: 23:22 sd2 12/09 21:41 Order name: CMP; Complete Time: 23:22 sd2 12/09 21:41 Order name: Lipase; Complete Time: 23:22 sd2 12/09 21:41 Order name: Urine Microscopic Only; Complete Time: 00:58 sd2 12/09 23:31 Order name: Urine Dipstick-Ancillary; Complete Time: 23:38 EDMS 12/09 23:45 Order name: Urine --Ancillary (enter results); Complete Time: 00:58 wm 12/09 21:41 Order name: CT Abd/Pelvis - IV Contrast Only sd2 12/09 21:41 Order name: IV Saline Lock; Complete Time: 22:29 sd2 12/09 21:41 Order name: Labs collected and sent; Complete Time: 22:29 sd2 12/09 21:41 Order name: Urine Dipstick-Ancillary (obtain specimen); Complete Time: 23:38 sd2 12/09 21:41 Order name: Urine Test (obtain specimen); Complete Time: 23:49 sd2 Administered Medications: 12/09 22:23 Drug: morphine 4 mg Route: IVP; Infused Over: 4 mins; Site: left antecubital; ha1 22:55 Follow up: Resp 16 bpm Spontaneous; Pulse Ox 100% RA; Response: No adverse reaction; ha1 Pain is decreased; RASS: Alert and Calm (0) 22:25 Drug: Zofran (Ondansetron) 4 mg Route: IVP; Site: left antecubital; ha1 22:55 Follow up: Response: No adverse reaction ha1 22:27 Drug: NS 0.9% 1000 ml Route: IV; Rate: 1 bolus; Site: left antecubital; ha1 12/10 02:28 Follow up: Response: No adverse reaction; IV Status: Completed infusion; IV Intake: ha1 1000ml 12/09 22:28 Drug: Pepcid (famotidine) 20 mg Route: IVP; Site: left antecubital; ha1 22:55 Follow up: Response: No adverse reaction ha1 Disposition Summary: 12/10/21 02:09 Discharge Ordered Location: Home sd2 Problem: an acute exacerbation sd2 Symptoms: have improved sd2 Condition: Stable sd2 Diagnosis - Acute on chronic abdominal pain sd2 - Nausea and vomiting sd2 Followup: sd2 - With: Raphael Ko MD - When: 2 - 3 days - Reason: Recheck today's complaints, Continuance of care Discharge Instructions: - Discharge Summary Sheet sd2 - Abdominal Pain, Adult sd2 - Nausea and Vomiting, Adult sd2 Forms: - Medication Reconciliation Form sd2 - Thank You Letter sd2 - Antibiotic Education sd2 - Prescription Opioid Use sd2 Prescriptions: - Tramadol 50 mg Oral Tablet - take 1 tablet by ORAL route every 6 hours as needed; 12 tablet; Refills: 0, sd2 Product Selection Permitted Signatures: Dispatcher [employer] Asmita Hart MD MD sd2 April Grover, RN RN ha1
[2021-12-10 02:34] VITALS: TEMP 98.8; O2SAT 100
[2021-12-10 02:37] VITALS: BP 100/63
--- NOTE | 2021-12-10 11:14 | RAD REPORT ---
EXAM DESCRIPTION: CT Abdomen and Pelvis With Intravenous Contrast CLINICAL HISTORY: The patient is 26 years old and is Female; ABD PAIN TECHNIQUE: Axial computed tomography images of the abdomen and pelvis with intravenous contrast. S agittal and coronal reformatted images were created and reviewed. This CT exam was performed using one or more of the following dose reduction techniques: automated exposure control, adjustment of t he mA and/or kV according to patient size, and/or use of iterative reconstruction technique. COMPARISON: No relevant prior studies available. FINDINGS: LUNG BASES: Unremarkable. No mass. No consolidation. ABDOMEN: LIVER: Unremarkable. No mass. GALLBLADDER AND BILE DUCTS: No calcified stones. No ductal dilation. PANCREAS: No ductal dilation. No mass. SPLEEN: Unremarkable. ADRENALS: Unremarkable. No mass. KIDNEYS AND URETERS: A few bilateral intrarenal calcifications are present. There is no hydroneph rosis or hydroureter of either kidney. No obstructing renal or ureteral calculus is seen. STOMACH AND BOWEL: The stomach is filled with fluid and air. The small bowel is normal in caliber . Stool is present throughout colon. There is no mucosal thickening or evidence of bowel obstruction. PELVIS: APPENDIX: The appendix is normal in caliber without surrounding inflammation. BLADDER: Unremarkable. No mass. REPRODUCTIVE: Unremarkable as visualized. ABDOMEN and PELVIS: INTRAPERITONEAL SPACE: Unremarkable. No free air. No significant fluid collection. BONES/JOINTS: No acute fracture. SOFT TISSUES: The soft tissues are normal. VASCULATURE: Unremarkable. No abdominal aortic aneurysm. LYMPH NODES: Unremarkable. No enlarged lymph nodes. IMPRESSION: No acute findings on this contrasted CT of the abdomen and pelvis to explain the patient 's symptoms. Electronically signed by: Ana Benitez MD 12/10/2021 12:50 AM CDT Due to temporary technical issues with the PACS/Fluency reporting system, reports are being signed by the in house radiologists without review as a courtesy to insure prompt reporting. The interpreting radiologist is fully responsible for the content of the report.
== END 2021-12-10 02:25 | disposition home or self-care (01) ==
LOC: ER 20:59
DX: R10.9 Unspecified abdominal pain (principal); R11.2 Nausea with vomiting, unspecified
CPT/HCPCS: 96361; 85025; 36415; 81025; 83690; 80053; 74177; 96375; 96374; 99284; Q9967; J7030; J2405; 81003; 81015

== ENCOUNTER 2024-06-10 20:02 | Emergency (ER) | payer BC ==
--- OUTSIDE RECORDS SUMMARY | 2024-06-10 20:06 | XMS REPORT | Continuity of Care Document ---
Author Name Unknown Address [address] [facility] [place] [address] [facility] [address] [facility] [place] [address] Care Team Providers Care Dispensing Audiologist Name Role Phone Melany Dias Primary Care Physician [phone] EDWIN AGUERO Attending Clinician UnavailEdwin Brownlee MD Attending Clinician [phone] Mary Sanabria MD Attending Clinician [phone] TALIA IQBAL Attending Clinician Unavailable Talia Iqbal MD Attending Clinician [phone] [email or web address]_Kadiyala_S Attending Clinician Unavaila CARLOS Silva Attending Clinician Unavailable Chivo Merino MD Attending Clinician [phone] Carlos Granados MD Attending Clinician [phone] Ann Ordaz Attending Clinician Unavailab MARY Aragon Admitting Clinician Unavailable GC_[email or web address]_Kaveronica_S Admitting Clinician UnavailCHIVO Mcgee Admitting Clinician Unavailable Ann Ordaz Admitting Clinician Unavailab papi Payers Payer Name Policy Type Policy Number Effective Date Expirati on Date Source [facility] [id number] 2021 00:00:00 Allergies, Adverse Reactions, Alerts Allergy Name Allergy Type Status Severity Reaction(s) Onset Date Inactive Date Treating Clinician Comments Source LAMOTRIG INE (BULK) DRUG Active Anaphylaxis 08-15 00:00: 00 [facility] Lamotrig ine (Bulk) Propensi ty to adverse reaction s Active Anaphylaxis 08-15 00:00: 00 [facility] No Known Allergie s Drug Active [facility] Social History Social Habit Start Date Stop Date Quantity Comments [facility] 2022-12-26 00:00:00 2022-12-26 00:00:00 [facility] Exposure to SARS-CoV-2 (event) 2021-08-05 00:00:00 2021-08-15 01:48:00 Not sure [facility] Sex Assigned At 1995 00:00:00 1995 00:00:00 [facility] Smoking Status Start Date Stop Date Source Tobacco smoking consumption unknown [facility] Medications Ordered Medication Name Filled Medication Name Start Date Stop Date Current Medication? Ordering Clinician Indication Dosage Frequency Signature (SIG) Comments Components Source triamcinolo ne acetonide 0.1 % ointment 2022-02 00:00: 00 Yes [id number] Apply to area(s) 2 (two) times daily. [facility] clarithromy elsa 500 mg tablet 2022-02 00:00: 00 01-17 05:59 :00 No [id number] 500mg Take 1 tablet by mouth every 12 (twelve) hours for 21 days. [facility] ciprofloxac in HCl (CIPRO) 500 mg tablet 2022-02 00:00: 00 01-17 05:59 :00 No [id number] 500mg Take 1 tablet by mouth in the morning and 1 tablet in the evening. Do all this for 21 days. [facility] ketorolac (TORADOL) injection 15 mg 2022-02 19:00: 00 12-24 18:34 :00 No 15mg 15 mg, Slow IV Push, ONCE NOW, 1 dose, On 12/24/22 at 1400, MARY [facility] cefTRIAXone (ROCEPHIN) 1,000 mg in NaCl 0.9% (NS) 100 mL MINI-BAG 2022-02 18:15: 00 12-24 19:00 :00 No 1000mg 1,000 mg, IV Piggyback, ONCE, 1 dose, On 12/24/22 at 1315, Administer over 30 Minutes, 100 mL
Reas on for Anti-Infec tive: Documented Infection< br>Documen ronnie Infection Site: Skin / Soft Tissue
Duration of Therapy: Other (see Comments) [facility] dexamethaso ne sod phos PF injection 10 mg 2022-02 18:15: 00 12-24 18:35 :00 No 10mg 10 mg, Slow IV Push, ONCE, 1 dose, On 12/24/22 at 1315, 1 mL [facility] predniSONE 20 mg tablet 2022-02 00:00: 00 Yes [id number] Take 2 tablets PO daily [facility] cefadroxil 500 mg capsule 2022-02 00:00: 00 Yes [id number] 500mg Take 1 capsule by mouth in the morning and 1 capsule in the evening. [facility] sucralfate 100 mg/mL suspension 2022-02 00:00: 00 Yes [id number] Apply topically to upper and lower lips 4 times a day [facility] triamcinolo ne 0.5 % ointment 2022-02 00:00: 00 Yes [id number] Apply to area(s) 2 (two) times daily. [facility] iopamidol (ISOVUE 370-500 mL) injection 55 mL 08-15 11:08: 00 08-15 11:30 :00 No [id number] 55mL 55 mL, Intravenou s, ONCE, 1 dose, On 08/15/21 at 0630, Routine [facility] ketorolac (TORADOL) injection 15 mg 08-15 10:30: 00 08-15 09:41 :00 No 15mg 15 mg, Slow IV Push, ONCE, 1 dose, On 08/15/21 at 0530, MARY [facility] famotidine (PEPCID (PF)) injection 20 mg 08-15 10:30: 00 08-15 09:41 :00 No 20mg 20 mg, Slow IV Push, ONCE, 1 dose, On Mon08/15/21 at 0530, [facility] ondansetron (ZOFRAN (PF)) injection 4 mg 08-15 10:30: 00 08-15 09:41 :00 No 4mg 4 mg, Slow IV Push, ONCE, 1 dose, On Mon08/15/21 at 0530, [facility] NaCl 0.9% (NS) bolus infusion 1,000 mL 08-15 10:30: 00 08-15 12:03 :00 No 1000mL at 999 mL/hr, 1,000 mL, IV Infusion, ONCE, 1 dose, On Mon08/15/21 at 0530, [facility] sodium chloride (NS) injection 5 mL 08-15 07:04: 16 Yes 5mL 5 mL, Intravenou s, PRN, Starting on Mon08/15/21 at 0204, Until Discontinu ed, Routine, IV line flushing [facility] acetaminoph en-codeine 300-30 mg tablet 08-15 00:00: 00 Yes [id number] 2{tbl} Take 2 tablets by mouth every 6 (six) hours as needed for Pain (scale 7-10). Indication s: acute pain [facility] ondansetron 4 mg disintegrat ing tablet 08-15 00:00: 00 Yes [id number] 4mg Take 1 tablet by mouth every 8 (eight) hours as needed for Nausea and Vomiting (N/V). [facility] Vital Signs Vital Name Observation Time Observation Value Comments S srikanthce Body height 2023-01-05 17:48:00 160 cm [facility] Systolic blood pressure 2022-12-24 17:48:00 106 mm[Hg] [facility] Diastolic blood pressure 2022-12-24 17:48:00 73 mm[Hg] [facility] Heart rate 2022-12-24 17:48:00 88 /min [facility] Body temperature 2022-12-24 17:48:00 37.22 Katie [facility] Respiratory rate 2022-12-24 17:48:00 16 /min [facility] Body height 2022-12-24 17:48:00 160 cm [facility] Body weight 2022-12-24 17:48:00 48.081 kg [facility] BMI 2022-12-24 17:48:00 18.78 kg/m2 [facility] Oxygen saturation in Arterial blood by Pulse oximetry 2022-12-24 17:48:00 100 /min [facility] Systolic blood pressure 2021-08-15 12:00:00 99 mm[Hg] [facility] Diastolic blood pressure 2021-08-15 12:00:00 65 mm[Hg] [facility] Respiratory rate 2021-08-15 12:00:00 16 /min [facility] Heart rate 2021-08-15 09:06:00 63 /min [facility] Body temperature 2021-08-15 09:06:00 36.61 Katie [facility] Oxygen saturation in Arterial blood by Pulse oximetry 2021-08-15 09:06:00 99 /min [facility] Body weight 2021-08-15 06:46:00 52.617 kg [facility] Procedures Procedure Date / Time Performed Performing Clinician Source FUNGUS (ROUTINE) CULTURE 2022-12-26 21:59:00 Leelee Medrano [facility] TISSUE CULTURE(AEROBIC/ANAEROBIC) 2022-12-26 21:59:00 Leelee Medrano [facility] DERMATOPATHOLOGY TISSUE EXAM 2022-12-26 00:00:00 Edwin Aguero [facility] POCT TEST 2022-12-24 18:22:00 Octavia Iqbal [facility] NOTICE OF PRIVACY PRACTICES 2022-12-24 17:44:54 Doctor Unassigned, [place] [facility] CONSENT/REFUSAL FOR DIAGNOSIS AND TREATMENT 2022-12-24 17:44:11 Doctor Unassigned, [place] [facility] CT ABDOMEN PELVIS W CONTRAST 2021-08-15 11:15:00 Chivo Merino [facility] POCT TEST 2021-08-15 09:38:00 Chivo Merino [facility] URINALYSIS 2021-08-15 08:15:00 Chivo Merino [facility] URINE DRUG (IMMUNOASSAY) - COMPREHENSIVE DRUG SCREEN W/O REFLEX 2021-08-15 08:15:00 Chivo Merino [facility] LIPASE 2021-08-15 07:44:00 Chivo Merino [facility] TEST, SERUM 2021-08-15 07:44:00 Chivo Merino [facility] COMP. METABOLIC PANEL (24502) 2021-08-15 07:44:00 Chivo Merino [facility] ETHANOL 2021-08-15 07:44:00 Chivo Merino [facility] CBC WITH DIFF 2021-08-15 07:44:00 Chivo Merino [facility] CONSENT/REFUSAL FOR DIAGNOSIS AND TREATMENT 2021-08-15 06:46:26 Doctor Unassigned, [place] [facility] Encounters Start Date/Time End Date/Time Encounter Type Admission Type Attending Clinicians Care Facility Care Department Encounter ID Source 2023-01-19 11:15:00 2023-01-19 11:15:00 Outpatient EDWIN TAYLOR [facility] [id number] [facility] 2023-01-05 11:30:00 2023-01-05 12:42:30 Outpatient R EDWIN AGUERO [facility] [id number] [facility] 2023-01-05 11:30:00 2023-01-05 12:42:30 Office Visit More [facility] [id number] [facility] 2022-12-29 00:00:00 2022-12-29 00:00:00 Telephone More [facility] 1..114 [id number] [facility] 2022-12-26 14:15:00 2022-12-26 15:59:51 Outpatient R EDWIN AGUERO [facility] [id number] [facility] 2022-12-26 14:15:00 2022-12-26 15:59:51 Office Visit Edwin Aguero [facility] 1..114 [id number] [facility] 2022-12-24 12:49:00 2022-12-24 14:02:00 Emergency X TALIA IQBAL [facility] ERT [id number] [facility] 2022-12-24 12:49:00 2022-12-24 14:02:00 Emergency Talia Iqbal [facility] [id number] [facility] 2022-12-21 00:00:00 2022-12-21 00:00:00 Outpatient GC_GCBZW_Ka diyala_S [facility] [id number] [facility] 2021-08-15 01:55:00 2021-08-15 07:38:00 Emergency X CARLOS GRANADOS [facility] ERT [id number] [facility] 2021-08-15 01:55:00 2021-08-15 07:38:00 Emergency Chivo Merino [facility] 1..114 [id number] [facility] 2019-11-10 02:39:00 2019-11-10 10:54:00 Emergency 1 [facility] [id number] Results Test Description Test Time Test Comments Results Result Co mments Source [facility], [id number] 09:51:51* Test Item Value Reference Range Interpretation Comme nts PREG SERUM (test code = 0830319640) Negative EMILY (test code = EMILY) Less than 10 IU/L. ?If low titer or ectopic is suspected, resubmit specimen in 48-72 hours. [facility] [id number] 09:38:00* Test Item Value Reference Range Interpretation Comme nts POCT PREG (test code = 1605) negative On board controls acceptable with C Line (test code = 3574) Present POCT PREG LOT # (test code = 3575) [id number] POCT PREG TEST DATE ( test code = 3576) 03-22-2022 Lab Interpretation (test cod e = 98229-4) Normal [facility]2022-06-26 09:36:22* Test Item Value Reference Range Interpretation Comme nts ALCOHOL (test code = 9549279764) <10 mg/dL EMILY (test code = EMILY) Toxic Greater than or equal to 80 mg/dL. NOTE: Whole blood values are approximately 10% to 15% lower than serum and plasma. [facility]CBC with [id number] 08:27:31* Test Item Value Reference Range Interpretation Comme nts WBC (test code = 6690-2) See_Comment L [Automated WIBa ge] The system which generated this result transmitted reference range: 4.30 - 11.10 10*3/?L. The reference range was not used to interpret this result as normal/abnormal. RBC (test code = 789-8) See_Comment [Automated WIBa ge] The system which generated this result transmitted reference range: 3.93 - 5.25 10*6/?L. The reference range was not used to interpret this result as normal/abnormal. HGB (test code = 718-7) 12.2 g/dL 11.6-15.0 HCT (test code = 4544-3) 35.9 % 35.7-45.2 MCV (test code = 787-2) 87.3 fL 80.6-95.5 MCH (test code = 785-6) 29.7 pg 25.9-32.8 MCHC (test code = 786-4) 34.0 g/dL 31.6-35.1 RDW-SD (test code = 31793-4) 38.8 fL 39.0-49.9 L RDW-CV (test code = 788-0) 12.1 % 12.0-15.5 PLT (test code = 777-3) See_Comment [Automated WIBa ge] The system which generated this result transmitted reference range: 166 - 358 10*3/?L. The reference range was not used to interpret this result as normal/abnormal. MPV (test code = 71773-0) 10.6 fL 9.5-12.9 NRBC/100 WBC (test code = 5986121117) See_Comment [Automated Aethon ssage] The system which generated this result transmitted reference range: 0.0 - 10.0 /100 WBCs. The reference range was not used to interpret this result as normal/abnormal. NRBC x10^3 (test code = 9316546198) <0.01 See_Comment [Automated WIBa ge] The system which generated this result transmitted reference range: 10*3/?L. The reference range was not used to interpret this result as normal/abnormal. GRAN MAT (NEUT) % (test code = 770-8) 46.9 % IMM GRAN % (test code = 0086201714) 0.20 % LYMPH % (test code = 736-9) 35.9 % MONO % (test code = 5905-5) 14.7 % EOS % (test code = 713-8) 1.4 % BASO % (test code = 706-2) 0.9 % GRAN MAT x10^3(ANC) (test code = 5526304921) 1.98 10*3/uL 1.88-7.09 IMM GRAN x10^3 (test code = 3340356408) <0.03 0.00-0.06 LYMPH x10^3 (test code = 731-0) 1.52 10*3/uL 1.32-3.29 MONO x10^3 (test code = 742-7) 0.62 10*3/uL 0.33-0.92 EOS x10^3 (test code = 711-2) 0.06 10*3/uL 0.03-0.39 BASO x10^3 (test code = 704-7) 0.04 10*3/uL 0.01-0.07 REACT LYMPHS (test code = 9133508679) Rare Lab Interpretation (test code = 86328-7) Abnormal [facility] Metabolic [id number] 08:07:03* Test Item Value Reference Range Interpretation Comme nts NA (test code = 2065122111) 138 mmol/L 135-145 K (test code = 9620228601) 4.2 mmol/L 3.5-5.0 CL (test code = 5872734936) 106 mmol/L 98-108 CO2 TOTAL (test code = 7707505209) 29 mmol/L 23-31 AGAP (test code = 8925057900) 2-16 BUN (test code = 6090699238) 11 mg/dL 7-23 GLUCOSE (test code = 3787704378) 89 mg/dL 70-110 CREATININE (test code = 1919342431) 0.58 mg/dL 0.50-1.04 TOTAL BILI (test code = 5536827219) 0.3 mg/dL 0.1-1.1 CALCIUM (test code = 0436397959) 9.1 mg/dL 8.6-10.6 T PROTEIN (test code = 1249580058) 7.0 g/dL 6.3-8.2 ALBUMIN (test code = 3054173682) 4.3 g/dL 3.5-5.0 ALK PHOS (test code = 1794143897) 63 U/L 34-122 ALTv (test code = 1742-6) 62 U/L 5-35 H AST(SGOT) (test code = 0730863394) 46 U/L 13-40 H eGFR (test code = 3814519590) mL/min/1.73m2 EMILY (test code = EMILY) Association of [...] or abnormalities in imaging tests). Lab Interpretation (test code = 47768-7) Abnormal [facility] HospitalLipase, [id number] 08:07:03* Test Item Value Reference Range Interpretation Comme nts LIPASE (test code = 6121686345) 319 U/L 0-220 H Lab Interpretation (test cod e = 09514-4) Abnormal [facility] HospitalUrine [id number] 08:10:34C Urine Added by [id number] growth at 24 hours. No growth at 48 hours.Novel Coronavirus SARS-CoV-2, [id number] 07:26:49* Test Item Value Reference Range Interpretation Comme nts SARS-CoV-2 PCR (test code = SARS-CoV-2 PCR) NEGATIVE Negative Positive results are indicative of active infection with SARS-CoV-2; clinical correlation with patient history and other diagnostic information is necessary to determine patient infection status.Presumptive positive results -INTERPRET WITH CAUTION: Result may not reflect if patient is actually positive. Patient should be treated based on clinical suspicions. Negative results do not preclude SARS-CoV-2 infection and should not be used as the sole basis for treatment or other patient management decisions. Negative results must be combined with clinical observations, patient history, and epidemiological information.The Xpert Xpress SARS-CoV-2 test is only for use under the Food and Drug Administration s Emergency Use Authorization." Urinalysis [id number] 05:37:57* Test Item Value Reference Range Interpretation Comme nts UA WBC (test code = UA WBC) 6-10 0-5 A UA RBC (test code = UA RBC) 6-10 0-5 A UA Bacteria (test code = UA Bacteria) None Seen UA Squam Epithelial (test co de = UA Squam Epithelial) 0-5 Comprehensive Metabolic [id number] 04:54:58* Test Item Value Reference Range Interpretation Comme nts Sodium Level (test code = So dium Level) 142.0 mmol/L 136.0-145.0 Potassium Level (test code = Potassium Level) 3.20 mmol/L 3.50-5.10 L Chloride Level (test code = Chloride Level) 104.0 mmol/L 98.0-107.0 CO2 (test code = CO2) 30 mmol/L 20-31 Anion Gap (test code = Anion Gap) 8.5 mmol/L 5.0-15.0 BUN (test code = BUN) 11 mg/dL 9-23 Creatinine Level (test code = Creatinine Level) 0.81 mg/dL 0.55-1.02 BUN/Creat Ratio (test code = BUN/Creat Ratio) 13.6 ratio 10.0-20.0 Glucose Level (test code = Glucose Level) 105 mg/dL 74-106 Calcium Level (test code = Calcium Level) 9.0 mg/dL 8.3-10.6 Alk Phos (test code = Alk Phos) 66 U/L 46-116 Bilirubin Total (test code = Bilirubin Total) 0.3 mg/dL 0.2-1.1 Albumin Level (test code = Albumin Level) 4.9 g/dL 3.2-4.8 H Protein Total (test code = Protein Total) 7.5 g/dL 5.7-8.2 ALT (test code = ALT) 29 U/L 10-49 AST (test code = AST) 44 U/L <=34 H Globulin (test code = Globulin) 2.6 g/dL 2.3-3.5 A/G Ratio (test code = A/G Ratio) 1.9 g/dL 0.8-2.0 Hemolysis (test code = Hemolysis) 0 g/dL 1-2 Icterus (test code = Icterus) 0 g/dL 1-2 Lipemia (test code = Lipemia) 0 g/dL 1-2 Comprehensive Metabolic [id number] 04:54:58* Test Item Value Reference Range Interpretation Comme nts Sodium Level (test code = Sodium Level) 142.0 mmol/L 136.0-145.0 Potassium Level (test code = Potassium Level) 3.20 mmol/L 3.50-5.10 L Chloride Level (test code = Chloride Level) 104.0 mmol/L 98.0-107.0 CO2 (test code = CO2) 30 mmol/L 20-31 Anion Gap (test code = Anion Gap) 8.5 mmol/L 5.0-15.0 BUN (test code = BUN) 11 mg/dL 9-23 Creatinine Level (test code = Creatinine Level) 0.81 mg/dL 0.55-1.02 BUN/Creat Ratio (test code = BUN/Creat Ratio) 13.6 ratio 10.0-20.0 Glucose Level (test code = Glucose Level) 105 mg/dL 74-106 Calcium Level (test code = Calcium Level) 9.0 mg/dL 8.3-10.6 Alk Phos (test code = Alk Phos) 66 U/L 46-116 Bilirubin Total (test code = Bilirubin Total) 0.3 mg/dL 0.2-1.1 Albumin Level (test code = Albumin Level) 4.9 g/dL 3.2-4.8 H Protein Total (test code = Protein Total) 7.5 g/dL 5.7-8.2 ALT (test code = ALT) 29 U/L 10-49 AST (test code = AST) 44 U/L <=34 H Globulin (test code = Globulin) 2.6 g/dL 2.3-3.5 A/G Ratio (test code = A/G Ratio) 1.9 g/dL 0.8-2.0 eGFR AA (test code = eGFR AA) >60 mL/min/1.73 m2 >=60 eGFR (estimated Glomerular Filtration Rate) is an estimated value, calculated from the patient's serum creatinine using the MDRD equation. It is NOT the patient's actual GFR. The eGFR provides a more clinically useful measure of kidney disease than serum creatinine alone.This calculation takes sex and race into account, if the information is provided. If the race is not provided, and the patient is -Marshallese, multiply by 1.212. If sex is not provided, and the patient is female, multiply by 0.742. Results for patients <18 years of age have not been validated by the MDRD study and should be interpreted with caution. eGFR Result Interpretation:eGFR > or = 60 is in the Normal RangeeGFR < 60 may mean kidney diseaseeGFR < 15 may mean kidney failure Ranges recommended by the National Kidney Foundation, http://nkdep.nih.gov Hemolysis (test code = Hemolysis) 0 g/dL 1-2 Icterus (test code = Icterus) 0 g/dL 1-2 Lipemia (test code = Lipemia) 0 g/dL 1-2 Alcohol [id number] 04:54:58* Test Item Value Reference Range Interpretation Comme nts Ethanol Level (test code = Ethanol Level) 163.2 mg/dL N The pharmacologi aury response to blood alcohol levels may vary from individual to individual. The fatal concentration has been reported to be >400 mg/dl. Comprehensive Metabolic [id number] 04:54:58* Test Item Value Reference Range Interpretation Comme nts Sodium Level (test code = Sodium Level) 142.0 mmol/L 136.0-145.0 Potassium Level (test code = Potassium Level) 3.20 mmol/L 3.50-5.10 L Chloride Level (test code = Chloride Level) 104.0 mmol/L 98.0-107.0 CO2 (test code = CO2) 30 mmol/L 20-31 Anion Gap (test code = Anion Gap) 8.5 mmol/L 5.0-15.0 BUN (test code = BUN) 11 mg/dL 9-23 Creatinine Level (test code = Creatinine Level) 0.81 mg/dL 0.55-1.02 BUN/Creat Ratio (test code = BUN/Creat Ratio) 13.6 ratio 10.0-20.0 Glucose Level (test code = Glucose Level) 105 mg/dL 74-106 Calcium Level (test code = Calcium Level) 9.0 mg/dL 8.3-10.6 Alk Phos (test code = Alk Phos) 66 U/L 46-116 Bilirubin Total (test code = Bilirubin Total) 0.3 mg/dL 0.2-1.1 Albumin Level (test code = Albumin Level) 4.9 g/dL 3.2-4.8 H Protein Total (test code = Protein Total) 7.5 g/dL 5.7-8.2 ALT (test code = ALT) 29 U/L 10-49 AST (test code = AST) 44 U/L <=34 H Globulin (test code = Globulin) 2.6 g/dL 2.3-3.5 A/G Ratio (test code = A/G Ratio) 1.9 g/dL 0.8-2.0 eGFR AA (test code = eGFR AA) >60 mL/min/1.73 m2 >=60 eGFR (estimated Glomerular Filtration Rate) is an estimated value, calculated from the patient's serum creatinine using the MDRD equation. It is NOT the patient's actual GFR. The eGFR provides a more clinically useful measure of kidney disease than serum creatinine alone.This calculation takes sex and race into account, if the information is provided. If the race is not provided, and the patient is -Marshallese, multiply by 1.212. If sex is not provided, and the patient is female, multiply by 0.742. Results for patients <18 years of age have not been validated by the MDRD study and should be interpreted with caution. eGFR Result Interpretation:eGFR > or = 60 is in the Normal RangeeGFR < 60 may mean kidney diseaseeGFR < 15 may mean kidney failure Ranges recommended by the National Kidney Foundation, http://nkdep.nih.gov eGFR Non-AA (test code = eGFR Non-AA) >60.00 mL/min/1.73 m2 >=60.00 eGFR (estimated Glomerular Filtration Rate) is an estimated value, calculated from the patient's serum creatinine using the MDRD equation. It is NOT the patient's actual GFR. The eGFR provides a more clinically useful measure of kidney disease than serum creatinine alone.This calculation takes sex and race into account, if the information is provided. If the race is not provided, and the patient is -Marshallese, multiply by 1.212. If sex is not provided, and the patient is female, multiply by 0.742. Results for patients <18 years of age have not been validated by the MDRD study and should be interpreted with caution. eGFR Result Interpretation:eGFR > or = 60 is in the Normal RangeeGFR < 60 may mean kidney diseaseeGFR < 15 may mean kidney failure Ranges recommended by the National Kidney Foundation, http://nkdep.nih.gov Hemolysis (test code = Hemolysis) 0 g/dL 1-2 Icterus (test code = Icterus) 0 g/dL 1-2 Lipemia (test code = Lipemia) 0 g/dL 1-2 Urinalysis with Culture, if [id number] 04:54:54* Test Item Value Reference Range Interpretation Comme nts UA Color (test code = UA Color) YELLO Yellow UA Appear (test code = UA Appear) CLEAR Clear UA pH (test code = UA pH) 7.0 UA Spec Grav (test code = UA Spec Grav) 1.010 1.001-1.035 UA Glucose (test code = UA Glucose) NEG Negative UA Bili (test code = UA Bili) NEG Negative UA Ketones (test code = UA Ketones) NEG Negative UA Blood (test code = UA Blood) MOD Negative A UA Protein (test code = UA Protein) NEG Negative UA Urobilinogen (test code = UA Urobilinogen) .2 mg/dL >0.2 UA Nitrite (test code = UA Nitrite) NEG Negative UA Leuk Est (test code = UA Leuk Est) LRG Negative A UA Micro Ind? (test code = U A Micro Ind?) Indicated Not Indicated A Urine DOA [id number] 04:48:36* Test Item Value Reference Range Interpretation Comme nts Amphetamine Screen Ur (test code = Amphetamine Screen Ur) Negative Negative The speci men is presumptive positive if the analyte concentration is equal to or greater than 1000 ng/ml.If confirmation of positive result is desired, please order Amphetamine Confirmation, Urine within 7 days. Barbiturate Screen Ur (test code = Barbiturate Screen Ur) Negative Negative The speci men is presumptive positive if the analyte concentration is equal to or greater than 200 ng/ml.If confirmation of positive result is desired, please order Barbiturate Confirmation, Urine within 7 days. Benzodiazepines Ur (test code = Benzodiazepines Ur) Negative Negative The specimen is presumptive positive if the analyte concentration is equal to or greater than 200 ng/ml.If confirmation of positive result is desired, please order Benzodiazephine Confirmation, Urine within 7 days. Cocaine Screen Ur (test code = Cocaine Screen Ur) Negative Negative The specimen is presumptive positive if the analyte concentration is equal to or greater than 300 ng/ml.If confirmation of positive result is desired, please order Cocaine Metabolite Confirmation, Urine within 7 days. Opiate Screen Ur (test code = Opiate Screen Ur) Negative Negative The specimen is presumptive positive if the analyte concentration is equal to or greater than 2000 ng/ml.If confirmation of positive result is desired, please order Opiate Confirmation, Urine within 7 days. U PCP Scrn (test code = U PCP Scrn) Negative Negative The specimen is presumptive positive if the analyte concentration is equal to or greater than 25 ng/ml.If confirmation of positive result is desired, please order Phencyclidine Confirmation, Urine within 7 days. Cannabinoid Screen Ur (test code = Cannabinoid Screen Ur) Negative Negative The speci men is presumptive positive if the analyte concentration is equal to or greater than 50 ng/ml.If confirmation of positive result is desired, please order Cannabinoid (THC) Confirmation, Urine within 7 days. U Methadone Scr (test code = U Methadone Scr) Negative Negative The spec imen is presumptive positive if the analyte concentration is equal to or greater than 300 ng/ml.If confirmation of positive result is desired, please order Methadone Confirmation, Urine within 7 days. U Propoxyphene (test code = U Propoxyphene) Negative Negative The speci men is presumptive positive if the analyte concentration is equal to or greater than 300 ng/ml.If confirmation of positive result is desired, please order Propoxyphene Confirmation within 7 days. Complete Blood Count with [id number] 04:41:34* Test Item Value Reference Range Interpretation Comme nts WBC (test code = WBC) 5.7 x10 4.4-10.5 RBC (test code = RBC) 4.87 x10 3.75-5.20 Hgb (test code = Hgb) 13.9 g/dL 12.2-14.8 Hct (test code = Hct) 43.2 % 36.5-44.4 MCV (test code = MCV) 88.70 fL 80.00-100.00 MCHC (test code = MCHC) 32.20 g/dL 32.00-37.50 RDW CV (test code = RDW CV) 13.3 % 11.5-14.5 MCH (test code = MCH) 28.5 pg 27.0-32.5 Platelets (test code = Platelets) 351.0 x10 140.0-440.0 MPV (test code = MPV) 10.1 fL N Slide Review (test code = Slide Review) Auto Auto Result crea ronnie by [id number] nRBC (test code = nRBC) 0 N NRBC Abs (test code = NRBC Abs) 0.00 x10 N Automated [id number] 04:41:34* Test Item Value Reference Range Interpretation Comme nts Neutro Auto (test code = Ash tro Auto) 63.6 % 36.0-70.0 Lymph Auto (test code = Lymph Auto) 25.0 % 12.0-44.0 [place] Auto (test code = [place] Auto) 9.6 % 0.0-11.0 Eos, Auto (test code = Eos, Auto) 0.7 % 0.0-7.0 Basophil Auto (test code = B asophil Auto) 0.9 % 0.0-2.0 Neutro Absolute (test code = Neutro Absolute) 3.6 x10 1.6-7.4 Lymph Absolute (test code = Lymph Absolute) 1.43 x10 .50-4.60 [place] Absolute (test code = M mariia Absolute) .55 x10 .00-1.20 Eos Absolute (test code = Eo s Absolute) 0.04 x10 0.00-0.74 Baso Absolute (test code = B aso Absolute) 0.05 x10 0.00-0.21 IG [id number] 04:41:34* Test Item Value Reference Range Interpretation Comme nts IG (test code = IG) 0.2 % 0.0-5.0 IG Abs (test code = IG Abs) 0 x10 N
[2024-06-10] MEDS ORDERED: NA CHLORIDE 0.9% 1,000 ML ONE (21:06)
[2024-06-10 21:07] LABS: Absolute Basophils 0.1 K/uL (0-0.5); Absolute Eosinophils 0.1 K/uL (0-0.5); Absolute Lymphocytes (CBC) 1.4 K/uL (0.7-4.9); Absolute Monocytes 0.6 K/uL (0.1-1.3); Absolute Neutrophil 3.7 K/uL (1.8-8.0); Basophils % 1.4 % (0-1.3); Eosinophils % 1.4 % (0-4.4); Hematocrit 34.5 % (36.0-45.0); Hemoglobin 11.9 g/dL (12.0-15.0); Lymphocytes % 24.5 % (15.3-44.8); MCH 29.9 pg (27.0-35.0); MCHC 34.4 g/dL (32.0-36.0); MCV 86.8 fL (80-100); MPV 8.4 fL (7.6-11.3); Monocytes % 9.7 % (3.3-12.3); Nucleated Red Blood Cells % 0.1 % (0-0); Platelets 235 thou/uL (152-406); RBC Red Blood Cell Count 3.98 M/uL (3.86-4.86); Red Cell Distribution Width 13.1 % (12.1-15.2); Specific Gravity 1.015 (1.005-1.030); Sqamous Epithelial None Seen /HPF (None Seen); Urine Bacteria None Seen /HPF (<20); Urine Bilirubin NEGATIVE (Negative); Urine Blood 2+ (Negative); Urine Clarity Turbid (Clear); Urine Color Light-Yellow (Yellow); Urine Crystals Unidentified Few /HPF (None Seen); Urine Culture Reflex Order NOT NEEDED; Urine Glucose NEGATIVE (Negative); Urine Ketones NEGATIVE (Negative); Urine Microscopic Reflex YN ORDER UMIC; Urine Mucus Slight /HPF (None Seen); Urine Nitrite NEGATIVE (Negative); Urine Protein NEGATIVE (Negative); Urine Urobilinogen Normal (Normal); Urine WBC <5 /HPF (<5)
[2024-06-10 21:08] LABS: Specific Gravity 1.015 (1.005-1.030)
[2024-06-10 21:11] LABS: PT Prothrombin Time 11.2 SECONDS (10-13.0); PTT, Activated Partial Thromb 36.6 SECONDS (27.2-37.4); Protime INR 0.98
[2024-06-10 21:12] LABS: Barbiturates NEGATIVE (NEGATIVE); Benzodiazepines NEGATIVE (NEGATIVE); Cocaine NEGATIVE (NEGATIVE); METHAMPHETAM NEGATIVE (NEGATIVE); Methadone NEGATIVE (NEGATIVE); Opiates NEGATIVE (NEGATIVE); Phencyclidine NEGATIVE (NEGATIVE); THC Cannibis NEGATIVE (NEGATIVE)
[2024-06-10 21:18] LABS: ALT/SGPT 16 U/L (13-56); Albumin 3.9 g/dL (3.4-5.0); Albumin/Globulin Ratio 1.2 (1.1-1.8); Alkaline Phosphatase 55 U/L (45-117); Anion Gap 4.4 mEq/L (5.0-15.0); BUN Blood Urea Nitrogen 8 mg/dL (7-18); Bicarbonate 31 mEq/L (21-32); Bilirubin Total 0.3 mg/dL (0.2-1.0); Globulin 3.3 g/dL (2.3-3.5); Glomerular Filtration Rate 98 ml/min (=/>90); Glucose Level 91 mg/dL (74-106); Potassium 3.4 mEq/L (3.5-5.1); Protein, Total 7.2 g/dL (6.4-8.2); Sodium Level 137 mEq/L (136-145)
[2024-06-10 21:29] LABS: AST/SGOT < 10 U/L (15-37); Bilirubin Direct < 0.2 mg/dL (0-0.2); Bilirubin Indirect, Calculated 0.1 mg/dL (0.2-0.8)
--- NOTE | 2024-06-11 00:42 | EDPHYS ---
Physician Documentation [facility] Name: Karol Damon Age: 29 yrs Sex: Female : 1995 Arrival Date: 06/10/2024 Time: 20:02 Bed 17 Private MD: ED Physician Mike Townsend HPI: 06/10 22:43 This 29 yrs old Female presents to ER via Ambulatory with complaints of Suicidal kb Ideation. 22:43 Pt is a 29 year old female who presents for suicidal ideations and overdose. 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 Pt states she has suffered from suicidal ideations for 14 years with a number of suicide attempts and 4 inpatient stays. Pt states she has been diagnosed with bipolar disorder and takes medications for it. States they work for a while, then stop working so she has to get on something else. States she has had suicidal thoughts for the last several months, but the thoughts have gotten worse and more frequent today. . 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: 06/11 02:45 Not cp4 Historical: - Allergies: 06/10 20:12 lamotrigine; kd3 20:12 NSAIDS; kd3 - Home Meds: 20:31 trazodone 100 mg oral tablet 2 tabs every day at bedtime for insomnia associated with me1 depression [Active]; Caplyta 21 mg oral capsule 1 cap daily for depression associated with bipolar disorder [Active]; Lunesta 3 mg oral tablet 1 tab every day at bedtime for insomnia [Active]; - PMHx: 20:12 Anxiety; Bipolar disorder; kd3 20:28 ventricular septal defect; mitral valve prolapse; gastritis; Gastroesophageal reflux me1 disease; Lupus erythematosus; - PSHx: 20:30 left foot surgery; right knee surgery; me1 - Immunization history:: Adult Immunizations up to date. - Infectious Disease History:: Denies. - Social history:: Smoking status: Patient denies any tobacco usage or history of. ROS: 21:40 Constitutional: As per HPI kb Exam: 21:40 Constitutional: This is a well developed, well nourished patient who is awake, alert, kb and in no acute distress. Head/Face: Normocephalic, atraumatic. ENT: Moist Mucous membranes Cardiovascular: Regular rate Respiratory: Respirations even and unlabored. No increased work of breathing. Talking in full sentences Abdomen/GI: Soft, non-tender. No distention Skin: Warm, dry with normal turgor. Normal color. MS/ Extremity: Pulses equal, no cyanosis. Neurovascular intact. Full, normal range of motion. Neuro: Awake and alert, GCS 15, oriented to person, place, time, and situation. 21:40 ECG was reviewed by the Attending Physician. 21:40 Psych: Behavior/mood is pleasant, cooperative, Affect is calm, Oriented to person, place, time, Patient having thoughts of suicide. Plan for suicide is overdose Vital Signs: 20:10 BP 105 / 75; Pulse 80; Resp 16; Temp 98.6(O); Pulse Ox 100% on R/A; Weight 41.28 kg; kd3 Height 5 ft. 3 in. ; 21:00 BP 105 / 69; Pulse 71; Resp 20; Pulse Ox 100% ; me1 22:00 BP 108 / 84; Pulse 62; Resp 21; Pulse Ox 100% ; me1 23:00 BP 112 / 91; Pulse 69; Resp 15; Pulse Ox 100% ; cp4 06/11 00:00 BP 105 / 78; Pulse 71; Resp 15; Pulse Ox 100% ; cp4 01:00 BP 101 / 75; Pulse 69; Resp 15; Pulse Ox 100% ; cp4 02:00 BP 104 / 71; Pulse 80; Resp 18; Pulse Ox 100% ; cp4 02:43 BP 105 / 73; Pulse 69; Resp 18; Pulse Ox 100% ; cp4 06/10 20:10 Body Mass Index 16.12 (41.28 kg, 160.02 cm) kd3 MDM: 06/10 20:12 Medical Screening Exam initiated kb 21:41 Differential diagnosis: acute psychotic break, depression, suicidal ideation. Data kb reviewed: vital signs, nurses notes. Consideration of Admission/Observation Escalation of care including admission/observation considered. pt will be transferred for inpatient psych. Historians other than the Patient: Spouse/Significant Other: significant other. Counseling: I had a detailed discussion with the patient and/or guardian regarding the historical points, exam findings, and any diagnostic results supporting the discharge/admit diagnosis, lab results, the need to transfer to another facility, [facility] does not immediately have the required specialist. 22:49 ED course: Poison control recommended charcoal (if agreeable and will tolerate), kb initial tylenol level with repeat in 4 hours as well as 6 hour observation period. Pt states she has had to take charcoal before and it irritates her GI issues so she prefers not to take it if possible. . 06/11 01:12 Management of patient was discussed with the following: Behavioral Health Provider: Pt kb was accepted for transfer to [facility] by Dr Peres without conference. 06/10 20:12 Order name: Acetaminophen; Complete Time: 21:38 kb 06/10 20:12 Order name: Basic Metabolic Panel; Complete Time: 21:38 kb 06/10 20:12 Order name: CBC with Diff; Complete Time: 21:10 kb 06/10 20:12 Order name: ETOH Level; Complete Time: 21:20 kb 06/10 20:12 Order name: Hepatic Function; Complete Time: 21:38 kb 06/10 20:12 Order name: PT-INR; Complete Time: 21:20 kb 06/10 20:12 Order name: Test, Urine; Complete Time: 21:10 kb 06/10 20:12 Order name: Ptt, Activated; Complete Time: 21:20 kb 06/10 20:12 Order name: Salicylate; Complete Time: 21:20 kb 06/10 20:12 Order name: Urinalysis w/ reflexes; Complete Time: 21:10 kb 06/10 20:12 Order name: Urine Drug Screen; Complete Time: 21:20 kb 06/10 23:53 Order name: Tylenol Level; Complete Time: 00:32 kb 06/10 20:12 Order name: EKG - Nurse/Tech; Complete Time: 21:03 kb 06/10 20:12 Order name: IV Saline Lock; Complete Time: 21:03 kb 06/10 20:12 Order name: Labs collected and sent; Complete Time: 21:03 kb 06/10 20:12 Order name: Suicide Precautions; Complete Time: 20:41 kb 06/10 20:12 Order name: Suicide Screening ([place]); Complete Time: 20:41 kb EC/21 21:40 Rate is 59 beats/min. Rhythm is regular. QRS [place] is Normal. HI interval is normal at kb 126 msec. QRS interval is normal at 86 msec. QT interval is normal at 427 msec. Administered Medications: 21:14 Drug: NS 0.9% IV 1000 ml IV at 1000 ml once; to be given as a bolus over 60 minutes me1 Route: IV; Rate: 1000 ml; Site: left antecubital; 06/11 01:16 Follow up: IV Status: Completed infusion cp4 Disposition: 20:28 Co-signature as Attending Physician, Mike Townsend MD I agree with the assessment sp4 and plan of care. I reviewed the patient's care provided by the Advanced Practice Provider and agree with the diagnosis and treatment plan. Disposition Summary: 06/11/24 00:41 Transfer Ordered Notes: Transfer Location: Psych Facility kb Reason: Higher level of care kb Condition: Stable kb Problem: new kb Symptoms: are unchanged kb Accepting Physician: Dr Peres(06/11/24 02:45) cp4 Diagnosis - Suicidal ideations kb - Hydrocodone overdose kb Discharge Instructions: - Discharge Summary Sheet vk Forms: - Medication Reconciliation Form kb - SBAR form vk Signatures: Dispatcher [employer] Karma Zheng FNP-Gabriel SHANNON-Juana Roblero RN RN kd3 Mike Townsend MD MD sp4 Alisia Rivas RN RN me1 Estela Jackson cp4 Corrections: (The following items were deleted from the chart) 06/10 20:13 20:13 ACETAMINOPHEN+C.LAB.BRZ ordered. EDMS EDMS 20:13 20:13 BASIC METABOLIC PANEL+C.LAB.BRZ ordered. EDMS EDMS 20:13 20:13 CBC+H.LAB.BRZ ordered. EDMS EDMS 20:13 20:13 ETHANOL+C.LAB.BRZ ordered. EDMS EDMS 20:13 20:13 HEPATIC FUNCTION+C.LAB.BRZ ordered. EDMS EDMS 20:13 20:13 PROTIME (+INR)+COAG.LAB.BRZ ordered. EDMS EDMS 20:13 20:13 Test, Urine+UC.LAB.BRZ ordered. EDMS EDMS 20:13 20:13 PTT, ACTIVATED+COAG.LAB.BRZ ordered. EDMS EDMS 20:13 20:13 SALICYLATE+C.LAB.BRZ ordered. EDMS EDMS 20:13 20:13 Urinalysis+U.LAB.BRZ ordered. EDMS EDMS 20:13 20:13 URINE DRUG SCREEN+UC.LAB.BRZ ordered. EDMS EDMS 06/11 01:12 00:41 Dr terry stewart 02:45 01:12 Dr Larisa stewart cp4
--- NOTE | 2024-06-11 00:42 | ER ---
Nurse's Notes [facility] Name: Karol Damon Age: 29 yrs Sex: Female : 1995 Arrival Date: 06/10/2024 Time: 20:02 Bed 17 Private MD: Diagnosis: Suicidal ideations;Hydrocodone overdose Presentation: 06/10 20:10 Chief complaint: Patient states: i took 5 of my hydrocodone today in an attempt to take kd3 my life. I took them about 20 minutes before I got here. I am not sure what has triggered this. Pt is tearful for triage. is accompanying her. Pt VSS. Pt has a past history of self harm. Coronavirus screen: Vaccine status: Patient reports being unvaccinated. Ebola Screen: No symptoms or risks identified at this time. Initial Sepsis Screen: Does the patient meet any 2 criteria? No. Patient's initial sepsis screen is negative. Does the patient have a suspected source of infection? No. Patient's initial sepsis screen is negative. Risk Assessment: Do you want to hurt yourself or someone else? Patient reports no desire to harm self or others. Onset of symptoms was June 10, 2024. 20:10 Method Of Arrival: Ambulatory kd3 20:10 Acuity: NIR 2 kd3 Triage Assessment: 20:12 General: Appears in no apparent distress. Behavior is cooperative, anxious, crying. kd3 Pain: Denies pain. 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 Not cp4 Historical: - Allergies: 06/10 20:12 lamotrigine; kd3 20:12 NSAIDS; kd3 - Home Meds: 20:31 trazodone 100 mg oral tablet 2 tabs every day at bedtime for insomnia associated with me1 depression [Active]; Caplyta 21 mg oral capsule 1 cap daily for depression associated with bipolar disorder [Active]; Lunesta 3 mg oral tablet 1 tab every day at bedtime for insomnia [Active]; - PMHx: 20:12 Anxiety; Bipolar disorder; kd3 20:28 ventricular septal defect; mitral valve prolapse; gastritis; Gastroesophageal reflux me1 disease; Lupus erythematosus; - PSHx: 20:30 left foot surgery; right knee surgery; me1 - Immunization history:: Adult Immunizations up to date. - Infectious Disease History:: Denies. - Social history:: Smoking status: Patient denies any tobacco usage or history of. Screenin:14 [facility] ED Fall Risk Assessment (Adult) History of falling in the last 3 months, me1 including since admission No falls in past 3 months (0 pts) Confusion or Disorientation No (0 pts) Intoxicated or Sedated No (0 pts) Impaired Gait No (0 pts) Mobility Assist Device Used No (0 pt) Altered Elimination No (0 pt) Score/Fall Risk Level 0 - 2 = Low Risk Maintained a safe environment, Provided non-skid footwear, Hourly rounding (assess needs \\T\\ fall precautionary measures) done. Abuse screen: Denies threats or abuse. Nutritional screening: No deficits noted. Tuberculosis screening: No symptoms or risk factors identified. Assessment: 20:14 General: Appears well groomed, well developed, well nourished, Behavior is calm, me1 cooperative, appropriate for age, Reports i took 5 of my hydrocodone today in an attempt to take my life. I took them about 20 minutes before I got here. I am not sure what has triggered this. Pt is tearful for triage. is accompanying her. Pt VSS. Pt has a past history of self harm. Pain: Denies pain. Neuro: Level of Consciousness is awake, alert, obeys commands, Oriented to person, place, time, situation, Appropriate for age. Cardiovascular: Patient's skin is warm and dry. Respiratory: Airway is patent Respiratory effort is even, unlabored, Respiratory pattern is regular, symmetrical. GI: No signs and/or symptoms were reported involving the gastrointestinal system. : No signs and/or symptoms were reported regarding the genitourinary system. EENT: No signs and/or symptoms were reported regarding the EENT system. Derm: Skin is intact, is healthy with good turgor, Skin is pink, warm \\T\\ dry. Musculoskeletal: No signs and/or symptoms reported regarding the musculoskeletal system. 20:33 General: Called poison control. . Monitor for MANAGER MOTOR depression. If me1 patient is awake and alert with good bowel sounds and is willing to you can administered charcoal. Have narcan ready to give as needed for slow respiratory rate. Observation time is 6 hours. Recollect tylenol level at 4 hours post ingestion. Informed Karma Daniel, PERSONNEL SECURITY SPECIALIST. 22:48 Reassessment: Patient appears in no apparent distress at this time. No changes from cp4 previously documented assessment. Patient and/or family updated on plan of care and expected duration. Pain level reassessed. Patient is alert, oriented x 3, equal unlabored respirations, skin warm/dry/pink. 23:26 Reassessment: Patient appears in no apparent distress at this time. Patient and/or cp4 family updated on plan of care and expected duration. Pain level reassessed. Patient is alert, oriented x 3, equal unlabored respirations, skin warm/dry/pink. 06/11 00:30 Reassessment: Patient appears in no apparent distress at this time. Patient and/or cp4 family updated on plan of care and expected duration. Pain level reassessed. Patient is alert, oriented x 3, equal unlabored respirations, skin warm/dry/pink. 01:16 Reassessment: Patient appears in no apparent distress at this time. cp4 Psych: 06/10 20:36 [place] Suicide Severity Screening: In the past month, have you wished you were me1 or wished you could go to sleep and not wake up? Patient responds "yes." "In the past month, have you actually had any thoughts of killing yourself?" Patient responds "yes." "In your lifetime, have you ever done anything, started to do anything, or prepared to do anything to end your life?" Patient responds "yes." Patient reports suicidal intent occurred greater than 3 months prior. SI attempts in the past have been at least 6 years ago or longer. Subjective: Patient's mood is sad, Delusions are denied, Hallucinations are denied Having thoughts of suicide. Plan for suicide is took 5 hydrocodone pills in an attempt to kill herself. Objective: Patient is cooperative, Speech is normal, Affect is flat, Patient has mutilated themselves by hx of cutting but not in the recent past. Interventions: Removed personal items and placed in bag. Patient placed in hospital gown. Searched person for dangerous items. Urine collected and sent for urine drug test. Belonging list filled out. Safety Checks: Personal items have been removed. Door is open. Pt denies substance abuse. Commitment: Patient will be a voluntary commitment. Vital Signs: 20:10 BP 105 / 75; Pulse 80; Resp 16; Temp 98.6(O); Pulse Ox 100% on R/A; Weight 41.28 kg; kd3 Height 5 ft. 3 in. ; 21:00 BP 105 / 69; Pulse 71; Resp 20; Pulse Ox 100% ; me1 22:00 BP 108 / 84; Pulse 62; Resp 21; Pulse Ox 100% ; me1 23:00 BP 112 / 91; Pulse 69; Resp 15; Pulse Ox 100% ; cp4 06/11 00:00 BP 105 / 78; Pulse 71; Resp 15; Pulse Ox 100% ; cp4 01:00 BP 101 / 75; Pulse 69; Resp 15; Pulse Ox 100% ; cp4 02:00 BP 104 / 71; Pulse 80; Resp 18; Pulse Ox 100% ; cp4 02:43 BP 105 / 73; Pulse 69; Resp 18; Pulse Ox 100% ; cp4 06/10 20:10 Body Mass Index 16.12 (41.28 kg, 160.02 cm) kd3 ED Course: 06/10 20:10 Patient arrived in ED. kd3 20:10 Sitter at bedside. rk3 20:12 Karma Sanchez FNP-C is PHCP. kb 20:12 Mike Townsend MD is Attending Physician. kb 20:12 Triage completed. kd3 20:12 Arm band placed on right wrist. kd3 20:13 Alisia Rivas, ANITA is Primary Nurse. me1 20:14 Patient has correct armband on for positive identification. Bed in low position. Call me1 light in reach. Side rails up X2. Provided Education on: POC. Verbalized understanding.. Client placed on continuous cardiac and pulse oximetry monitoring. NIBP monitoring applied. submarine diver on. Pulse ox on. NIBP on. 20:14 No provider procedures requiring assistance completed. me1 21:03 Initial lab(s) drawn, by mn, sent to lab. Inserted saline lock: 20 gauge in left rk3 antecubital area, using aseptic technique. Blood collected. Flushed with 10 mL NS. 06/11 00:45 initiated transfer via fax to the following facilities: [facility], [facility], [facility], [facility], [facility]. 00:54 Tami from [facility] called for Nurse to Nurse transferred call to Estela. 01:06 Ruthie with [facility] called for nurse to nurse transferred call to Estela/ stephon Patient was accepted to [facility] to Dr. Peres \\[id number] admin approval is Michelle Mena \\[id number]. 02:32 patient transported via EMS EMS transport. 02:44 intact, bleeding controlled, No redness/swelling at site. Pressure dressing applied. 4 Administered Medications: 06/10 21:14 Drug: NS 0.9% IV 1000 ml IV at 1000 ml once; to be given as a bolus over 60 minutes me1 Route: IV; Rate: 1000 ml; Site: left antecubital; 06/11 01:16 Follow up: IV Status: Completed infusion 4 Medication: 02:45 VIS not applicable for this client. 4 Outcome: 00:41 ER care complete, transfer ordered by MD. kb 02:44 Transferred by ground EMS Transfer form completed. X-rays sent w/ patient. Note: [address] 02:44 Condition: stable 02:44 Instructed on the need for transfer, 02:45 Patient left the ED. [facility] Signatures: Karma Sanchez, MIRTHA-C PERSONNEL SECURITY SPECIALIST-Juana Roblero RN RN kd3 Alisia Rivas RN RN me1 Estela Jackson 4 Aliya Christopher Rozana rk3 Corrections: (The following items were deleted from the chart) 06/10 20:13 20:10 Chief complaint: Patient states: i took 5 of my hydrocodone today in an attempt me1 to take my life. I took them about 20 minutes before I got here. I am not sure what has triggered this. Pt is tearful for triage. is accompanying her. Pt VSS. Pt has a past history of self harm kd3 20:35 20:33 General: Called poison control. . Monitor for MANAGER MOTOR depression. me1 If patient is awake and alert with good bowel sounds and is willing to you can administered charcoal. Have narcan ready to give as needed for slow respiratory rate. Observation time is 6 hours. Recollect tylenol level at 4 hours post ingestion. . me1
[2024-06-11 02:55] VITALS: TEMP 98.6; O2SAT 100
[2024-06-11 03:17] VITALS: BP 105/73
--- NOTE | 2024-06-12 12:40 | EKG ---
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
== END 2024-06-11 02:45 ==
LOC: ER 20:02
DX: R45.851 Suicidal ideations (principal); T40.2X1A Poisoning by other opioids, accidental (unintentional), initial encounter; F31.9 Bipolar disorder, unspecified
CPT/HCPCS: 96361; 93005; 85025; 81001; 80048; 36415; 81025; 85610; 80076; 85730; 80307; 96360; 99285; 80143 ×2; 80179; 82077; J7030